=== PATIENT | female | born 1940 | race Caucasian/White ===

== ENCOUNTER 2016-04-18 11:51 | Inpatient (IN) | payer MEDICAID, MEDICARE ==
[2016-04-18 13:14] LABS: PROTHROMBIN TIME 15.2 SEC (11.4-15.4)
[2016-04-18] MEDS ORDERED: LIDOCAINE 1% INJ-PF (10 MG/ML) 30 ML SDV NEB ONE (13:17)
[2016-04-18] MEDS ORDERED: NORMAL SALINE 1000 ML 200 ML IV ONE (13:17)
[2016-04-18] MEDS ORDERED: ACETAMINOPHEN 650 MG SUPP.RECT PR ONE (13:21)
--- NOTE | 2016-04-18 13:25 | ER Document Report ---
ED General <DAKOTAHJOSÉ LUIS RamírezAKASH - Last Filed: 04/18/16 15:57> - General Mode of Arrival: Medic Information source: Emergency Med Personnel TRAVEL OUTSIDE OF THE [place] IN LAST 30 DAYS: No - HPI Patient complains to provider of: bilateral lower extremity edema Onset: This morning Associated symptoms: Other - see above <JULIETA BENZ - Last Filed: 04/23/16 15:52> - General Chief Complaint: Leg Swelling Stated Complaint: SWELLING Notes: 75 year old female with history of dementia, atrial fibrillation, hypertension, pneumonia, and bilateral lower extremity edema and cellulitis presents to the ED via [facility] complaining of increased swelling and drainage to her bilateral lower extremities. Upon examination, patient was continuously coughing and a comprehensive HPI was unobtainable. (JULIETA BENZ) - Related Data Allergies/Adverse Reactions: cefazolin [Cefazolin] Allergy (Intermediate, Verified 04/18/16 16:00) Penicillins Allergy (Intermediate, Verified 04/18/16 16:00) aspirin [Aspirin] Allergy (Unknown, Verified 04/18/16 16:00) ciprofloxacin [From Cipro] Allergy (Unknown, Verified 04/18/16 16:00) codeine [Codeine] Allergy (Unknown, Verified 04/18/16 16:00) furosemide [From Lasix] Allergy (Unknown, Verified 04/18/16 16:00) metoclopramide HCl [From Reglan] Allergy (Unknown, Verified 04/18/16 16:00) prednisone [Prednisone] Allergy (Unknown, Verified 04/18/16 16:00) Sulfa (Sulfonamide Antibiotics) Allergy (Unknown, Verified 04/18/16 16:00) levofloxacin [From Levaquin] Allergy (Verified 04/18/16 16:00) Iodinated Contrast Media - Oral and Adverse Reaction (Severe, Verified 04/18/16 16:00) Home Medications: Current Home Medications Brimonidine Tartrate [Alphagan 0.2% Oph Soln 5 ml] 1 drop OU Q12 04/18/16 [ History] Diphenhydramine HCl [Benadryl Elixir 25 mg/10 ml Ud Cup] 5 ml PO BIDP PRN [History] Docusate Sodium [Colace 100 mg Capsule] 100 mg PO BID 04/18/16 [History] Dorzolamide HCl/Timolol Maleat [Cosopt Eye Drops] 1 drop OU Q12 04/18/16 [ History] Fentanyl [Duragesic 25 Mcg/Hr Transdermal Patch] 1 each TD Q2DAYS 04/18/16 [ History] Hydrocortisone [Hydrocortisone 1% Cream 28.35 Gm] 1 applic TP Q2DAYS 04/18/16 [ History] Hydromorphone HCl [Dilaudid 2 mg Tablet] 8 mg PO Q6HP PRN 04/18/16 [History] Latanoprost [Xalatan 0.005% Oph Soln 2.5 ml] 1 drop OU QHS 04/18/16 [History] Levetiracetam 500 mg PO Q12 04/18/16 [History] Loratadine [Claritin] 10 mg PO DAILY 04/18/16 [History] Metoprolol Succinate [Toprol Xl] 100 mg PO DAILY 04/18/16 [History] Multivitamin [Multivitamins] 1 each PO DAILY 04/18/16 [History] Omeprazole 20 mg PO DAILY 04/18/16 [History] Ondansetron HCl [Zofran 8 mg Tablet] 8 mg PO Q8HP PRN 04/18/16 [History] Paroxetine HCl [Paxil] 10 mg PO DAILY 04/18/16 [History] Past Medical History - General Information source: Emergency Med Personnel, [facility] Records - Social History Smoking Status: Unknown if Ever Smoked Family History: Reviewed & Not Pertinent - Past Medical History Cardiac Medical History: Reports: Hx Atrial Fibrillation, Hx Hypertension Pulmonary Medical History: Reports: Hx Pneumonia Neurological Medical History: Reports: Hx Seizures GI Medical History: Reports: Hx Gastroesophageal Reflux Disease, Hx Hiatal Hernia, Hx Ulcer Musculoskeltal Medical History: Reports Hx Arthritis Skin Medical History: Reports Hx Cellulitis - Chronic, Reports Hx MRSA Psychiatric Medical History: Reports: Hx Anxiety, Hx Dementia, Hx Depression Traumatic Medical History: Reports: Hx Fractures Infectious Medical History: Reports: Hx MRSA Past Surgical History: Reports: Hx Abdominal Surgery - abd hernia repair x1, Hx Appendectomy, Hx Bowel Surgery, Hx Herniorrhaphy, Hx Hysterectomy, Hx Orthopedic Surgery - back, Hx Rectal Surgery - rectal prolapse repair, Hx Tonsillectomy, Hx Urinary Tract Surgery - Immunizations Immunizations up to date: Yes Hx Diphtheria, Pertussis, Tetanus Vaccination: Yes Hx Pneumococcal Vaccination: 08/11/10 <JULIETA BENZ - Last Filed: 04/23/16 15:52> Review of Systems <AKASH CLAIRE - Last Filed: 04/18/16 15:57> - Review of Systems Constitutional: No symptoms reported EENT: No symptoms reported Cardiovascular: No symptoms reported Respiratory: See HPI, Cough - continuous Gastrointestinal: No symptoms reported Genitourinary: No symptoms reported Female Genitourinary: No symptoms reported Musculoskeletal: See HPI, Leg swelling - bilaterally with drainage, Ankle swelling - bilaterally with drainage Skin: No symptoms reported Hematologic/Lymphatic: No symptoms reported Neurological/Psychological: No symptoms reported -: Yes All other systems reviewed and negative <JULIETA BENZ - Last Filed: 04/23/16 15:52> - Review of Systems Notes: A comprehensive ROS was unobtainable secondary to the patient's constant cough. (JULIETA BENZ) Physical Exam <AKASH CLAIRE - Last Filed: 04/18/16 15:57> - General General appearance: Alert - HEENT Head: Normocephalic, Atraumatic Eyes: Normal Extraocular movements intact: Yes Pupils: PERRL - Respiratory Respiratory status: No respiratory distress Breath sounds: Productive cough - Continuous coughing and gagging. Patient is bringing up mucus and foam., Rhonchi - bilaterally. No: Normal - Cardiovascular Rhythm: Regular, Tachycardia Heart sounds: Normal auscultation - Abdominal Inspection: Normal Distension: No distension Tenderness: Nontender - Back Back: Normal - Extremities General upper extremity: Normal inspection, Normal ROM General lower extremity: Edema - Bilateral lower extremities are grossly lymphedematous with erythema and weeping. Bilateral lower extremities do not look a lot different than before., Normal ROM. No: Normal inspection - Neurological Neuro grossly intact: Yes - Unable to determine if patient is at baseline - Psychological Associated symptoms: Normal affect, Normal mood - Skin Skin Temperature: Warm Skin Moisture: Dry Skin Color: Normal Skin irregularity: other - see lower extremity exam above <JULIETA BENZ - Last Filed: 04/23/16 15:52> - Vital signs Vitals: Resp 22 H 04/18/16 12:30 (AKASH CLAIRE) (JULIETA BENZ) Course - Laboratory Result Diagrams: 04/18/16 12:37 04/18/16 12:37 - Diagnostic Test Radiology reviewed: Image reviewed, Reports reviewed - Small right effusion enlarged heart R Tylenol hernia no acute process - EKG Interpretation by Me EKG shows normal: Sinus rhythm, Intervals. abnormal: [place], QRS Complexes - Borderline R-wave progression in anterior leads, ST-T Waves - [place] lateral T abnormalities Rate: Tachycardia - 115 Rhythm: A.Fib [place]/QRS: Left axis deviation When compared to previous EKG there are: No significant change - Consults Dr. Pastrana Time consulted: 14:35 Consulted provider: will see as inpatient <AKASH CLAIRE - Last Filed: 04/18/16 15:57> - Laboratory Result Diagrams: 04/22/16 15:15 04/22/16 15:15 <JULIETA BENZ - Last Filed: 04/23/16 15:52> - Vital Signs Vital signs: Temp Pulse Resp BP Pulse Ox 98.1 F 64 18 141/85 H 91 L 04/23/16 14:47 04/23/16 14:47 04/23/16 14:47 04/23/16 14:47 04/23/16 14:47 (AKASH CLAIRE) (JULIETA BENZ) - Laboratory Laboratory results interpreted by va: 04/18/16 04/18/16 04/18/16 12:37 12:37 12:37 WBC 38.0 H* Hgb 11.7 L RDW 14.9 H Plt Count 661 H Seg Neuts % (Manual) 90 H Band Neutrophils % 1 L Lymphocytes % (Manual) 6 L Monocytes % (Manual) 2 L Metamyelocytes % 1 H Abs Neuts (Manual) 35.0 H VBG pH Sodium 133.0 L Potassium 5.1 H Chloride 96 L Carbon Dioxide 20 L BUN 26 H Glucose 131 H Lactic Acid 3.5 H Alkaline Phosphatase 216 H Albumin 2.8 L Lipase TSH Urine Protein Urine Blood Urine Urobilinogen Ur Leukocyte Esterase 04/18/16 04/18/16 04/18/16 12:37 12:37 12:37 WBC Hgb RDW Plt Count Seg Neuts % (Manual) Band Neutrophils % Lymphocytes % (Manual) Monocytes % (Manual) Metamyelocytes % Abs Neuts (Manual) VBG pH Sodium Potassium Chloride Carbon Dioxide BUN Glucose Lactic Acid Alkaline Phosphatase Albumin Lipase 14.0 L TSH 4.69 H Urine Protein 30 H Urine Blood SMALL H Urine Urobilinogen 2.0 H Ur Leukocyte Esterase MODERATE H 04/18/16 04/18/16 13:40 17:50 WBC Hgb RDW Plt Count Seg Neuts % (Manual) Band Neutrophils % Lymphocytes % (Manual) Monocytes % (Manual) Metamyelocytes % Abs Neuts (Manual) VBG pH 7.25 L Sodium Potassium Chloride Carbon Dioxide BUN Glucose Lactic Acid 3.0 H Alkaline Phosphatase Albumin Lipase TSH Urine Protein Urine Blood Urine Urobilinogen Ur Leukocyte Esterase (AKASH CLAIRE) Discharge - Discharge Admitting Provider: [facility] Unit Admitted: Telemetry <AKASH CLAIRE - Last Filed: 04/18/16 15:57> <JULIETA BENZ - Last Filed: 04/23/16 15:52> - Discharge Clinical Impression: Tachycardia, Lymphedema Cellulitis Qualifiers: Site of cellulitis: unspecified site Qualified Code(s): L03.90 - Cellulitis, unspecified Fever Qualifiers: Fever type: unspecified Qualified Code(s): R50.9 - Fever, unspecified Leukocytosis Qualifiers: Leukocytosis type: unspecified Qualified Code(s): D72.829 - Elevated white blood cell count, unspecified Dementia Qualifiers: Dementia type: unspecified type Dementia behavioral disturbance: without behavioral disturbance Qualified Code(s): F03.90 - Unspecified dementia without behavioral disturbance Urinary tract infection Qualifiers: Urinary tract infection type: acute cystitis Hematuria presence: without hematuria Qualified Code(s): N30.00 - Acute cystitis without hematuria Disposition: ADMITTED INPATIENT Scribe Attestation: 04/18/16 14:34 I personally performed the services described in the documentation, reviewed and edited the documentation which was dictated to the scribe in my presence, and it accurately records my words and actions. (AKASH CLAIRE) Scribe Documentation - Scribe Written by Zhou:: Zhou Chandler, 04/18/2016 1334 acting as scribe for :: [place]otah <JULIETA BENZ - Last Filed: 04/23/16 15:52>
[2016-04-18 13:26] LABS: HEMATOCRIT 36.1 % (36.0-47.0); HEMOGLOBIN 11.7 g/dL (12.0-15.5); MEAN CORPUSCULAR HEMOGLOBIN 28.2 pg (27.0-33.4); MEAN CORPUSCULAR HGB CONC 32.4 g/dL (32.0-36.0); MEAN CORPUSCULAR VOLUME 87 fl (80-97); RED BLOOD COUNT 4.16 10^6/uL (3.72-5.28); RED CELL DISTRIBUTION WIDTH 14.9 % (11.5-14.0)
[2016-04-18 13:36] LABS: ALANINE AMINOTRANSFERASE 27 U/L (9-52); ALBUMIN 2.8 g/dL (3.5-5.0); ALKALINE PHOSPHATASE 216 U/L (38-126); ANION GAP 17 (5-19); ASPARTATE AMINO TRANSFERASE 27 U/L (14-36); BILIRUBIN,TOTAL 0.9 mg/dL (0.2-1.3); BLOOD UREA NITROGEN 26 mg/dL (7-20); CALCIUM 8.8 mg/dL (8.4-10.2); CARBON DIOXIDE 20 mmol/L (22-30); CHLORIDE 96 mmol/L (98-107); CREATININE RESULT 0.76 mg/dL (0.52-1.25); GLUCOSE 131 mg/dL (75-110); POTASSIUM 5.1 mmol/L (3.6-5.0); TOTAL PROTEIN 7.5 g/dL (6.3-8.2)
[2016-04-18 13:44] LABS: AMORPHOUS SEDIMENT,URINE TRACE /HPF; APPEARANCE,URINE CLOUDY; BAND NEUTROPHILS % (MANUAL) 1 % (3-5); BASOPHILS % (MANUAL) 0 % (0-2); BILIRUBIN,URINE NEGATIVE (NEGATIVE); EOSINOPHILS % (MANUAL) 0 % (0-6); GLUCOSE, URINE NEGATIVE (NEGATIVE); KETONES,URINE NEGATIVE (NEGATIVE); LEUKOCYTE ESTERASE,URINE MODERATE (NEGATIVE); LYMPHOCYTES % (MANUAL) 6 % (13-45); NITRITE,URINE NEGATIVE (NEGATIVE); PROTEIN,URINE 30 mg/dL (NEGATIVE); TOTAL CELLS COUNTED 100; URINE SPECIFIC GRAVITY 1.019
[2016-04-18 13:45] LABS: POLYCHROMASIA 1+; TOXIC GRANULATION 1+; TOXIC VACUOLATION PRESENT
[2016-04-18 13:46] LABS: VENOUS BLOOD BASE EXCESS -4.2 mmol/L; VENOUS BLOOD HCO3 23.4 mmol/L (20-32); VENOUS BLOOD PCO2 54.2 mmHg (35-63); VENOUS BLOOD PH 7.25 (7.30-7.42)
[2016-04-18] MEDS ORDERED: TIGECYCLINE 50 MG IV ONE (14:45)
[2016-04-18] MEDS ORDERED: LORAZEPAM INJ 2 MG/1 ML VIAL IV ONE ×2 (14:46→16:53)
[2016-04-18] MEDS ORDERED: NORMAL SALINE IV ONE ×2 (16:00→16:30)
[2016-04-18] MEDS ORDERED: TIGECYCLINE IV ONE ×2 (16:00→16:30)
[2016-04-18] MEDS ORDERED: MORPHINE SULFATE 10 MG/ML INJ IV ONE (16:53)
[2016-04-18] MEDS ORDERED: LORAZEPAM INJ 2 MG/1 ML VIAL ONE (17:34)
--- NOTE | 2016-04-18 18:07 | EKG REPORT ---
SEVERITY:- ABNORMAL ECG - SINUS TACHYCARDIA WITH FREQ PACS. LEFT AXIS DEVIATION = LAFB BORDERLINE R WAVE PROGRESSION, ANTERIOR LEADS NONSPECIFIC T ABNORMALITIES, LATERAL LEADS : Confirmed by: Saleem Mcpherson MD 18-Apr-2016 18:06:44
[2016-04-18] MEDS ORDERED: ONDANSETRON HCL 8 MG TABLET PO PRN (19:12)
[2016-04-18] MEDS ORDERED: DIPHENHYDRAMINE HCL 25 MG/10 ML UDC PO PRN ×2 (19:12→19:43)
[2016-04-18] MEDS ORDERED: BRIMONIDINE TARTRATE 0.2% OPH SOLN 5 ML OU SCH (19:15)
[2016-04-18] MEDS ORDERED: DORZOLAMIDE HCL 2%/TIMOLOL MALEAT 0.5% OPH SOLN 10 ML OU SCH (19:15)
[2016-04-18] MEDS ORDERED: LEVETIRACETAM 500 MG TABLET PO SCH (19:15)
[2016-04-18] MEDS ORDERED: (PENDING PHARMACY ID) (Loratadine [Claritin] 10 MG) PO SCH (19:15)
[2016-04-18] MEDS ORDERED: (PENDING PHARMACY ID) (Paroxetine Hcl [Paxil] 10 MG) PO SCH (19:15)
[2016-04-18] MEDS ORDERED: DOCUSATE SODIUM 100 MG CAPSULE PO SCH (20:00)
[2016-04-18 20:55] LABS: CREATINE KINASE MB 2.29 ng/mL (<4.55); TROPONIN I 0.015 ng/mL
[2016-04-18] MEDS ORDERED: LANSOPRAZOLE 15 MG TAB.RAP.DR PO ONE (21:00)
[2016-04-18] MEDS ORDERED: PAROXETINE HCL 20 MG TABLET PO ONE (21:00)
[2016-04-18] MEDS ORDERED: METOPROLOL SUCCINATE 50 MG TAB.SR.24H PO ONE (21:00)
[2016-04-18] MEDS ORDERED: MULTIVITAMIN TABLET PO ONE (21:00)
[2016-04-18 23:49] LABS: THYROID STIMULATING HORMONE 4.69 uIU/mL (0.47-4.68)
[2016-04-18] MEDS: AZTREONAM 1 GM in DEXTROSE 5%-WATER 50 ML IV SCH (23:57)
[2016-04-19] MEDS: HEPARIN SOD (PORCINE) 5,000 UNIT/ML 1 ML SYRINGE SUBCUT SCH ×4 (00:15→22:11)
[2016-04-19] MEDS: BRIMONIDINE TARTRATE 0.2% OPH SOLN 5 ML OU SCH ×3 (00:18→22:10)
[2016-04-19] MEDS: DORZOLAMIDE HCL 2%/TIMOLOL MALEAT 0.5% OPH SOLN 10 ML OU SCH ×3 (00:19→22:10)
[2016-04-19] MEDS: DOCUSATE SODIUM 100 MG CAPSULE PO SCH ×3 (00:19→22:11)
[2016-04-19] MEDS: LEVETIRACETAM 500 MG TABLET PO SCH ×3 (00:20→22:11)
[2016-04-19] MEDS: LATANOPROST 0.005% OPH SOLN 2.5 ML OU SCH ×2 (00:24→22:10)
[2016-04-19] MEDS: FENTANYL 25 MCG/HR PATCH.TD72 TD SCH (02:13)
[2016-04-19] MEDS: HYDROCORTISONE 1% CREAM 28.35 GM TP SCH (02:13)
[2016-04-19] MEDS: LINEZOLID 300 ML IV SCH ×2 (02:14→11:51)
[2016-04-19 02:29] LABS: CREATINE KINASE MB 2.43 ng/mL (<4.55)
[2016-04-19 02:33] LABS: TROPONIN I < 0.012 ng/mL
[2016-04-19] MEDS: NORMAL SALINE 1000 ML 1,000 ML IV PRN ×2 (02:46→17:32)
[2016-04-19] MEDS: HYDROMORPHONE HCL 2 MG TABLET PO PRN (03:00)
[2016-04-19] MEDS ORDERED: INFLUENZA ADLT QUAD (36MOS+) 2016-17 VAC 0.5 ML SYR IM PRN (03:44)
[2016-04-19] MEDS: AZTREONAM 1 GM in DEXTROSE 5%-WATER 50 ML IV SCH ×3 (06:19→22:09)
[2016-04-19 08:43] LABS: HEMATOCRIT 29.2 % (36.0-47.0); MEAN CORPUSCULAR HEMOGLOBIN 27.7 pg (27.0-33.4); MEAN CORPUSCULAR HGB CONC 32.1 g/dL (32.0-36.0); MEAN CORPUSCULAR VOLUME 86 fl (80-97); RED BLOOD COUNT 3.38 10^6/uL (3.72-5.28); RED CELL DISTRIBUTION WIDTH 14.8 % (11.5-14.0); WHITE BLOOD COUNT 26.5 10^3/uL (4.0-10.5)
[2016-04-19 08:44] LABS: HEMOGLOBIN 9.4 g/dL (12.0-15.5)
[2016-04-19 08:52] LABS: ALANINE AMINOTRANSFERASE 24 U/L (9-52); ALBUMIN 2.1 g/dL (3.5-5.0); ALKALINE PHOSPHATASE 146 U/L (38-126); ANION GAP 10 (5-19); ASPARTATE AMINO TRANSFERASE 19 U/L (14-36); BILIRUBIN,TOTAL 0.5 mg/dL (0.2-1.3); BLOOD UREA NITROGEN 23 mg/dL (7-20); CALCIUM 8.1 mg/dL (8.4-10.2); CARBON DIOXIDE 21 mmol/L (22-30); CHLORIDE 105 mmol/L (98-107); CREATININE RESULT 0.62 mg/dL (0.52-1.25); GLUCOSE 116 mg/dL (75-110); TOTAL PROTEIN 5.4 g/dL (6.3-8.2)
[2016-04-19 08:56] LABS: BAND NEUTROPHILS % (MANUAL) 2 % (3-5); BASOPHILS % (MANUAL) 0 % (0-2); EOSINOPHILS % (MANUAL) 0 % (0-6); LYMPHOCYTES % (MANUAL) 2 % (13-45); TOTAL CELLS COUNTED 100
[2016-04-19 08:57] LABS: ANISOCYTOSIS SLIGHT; TOXIC GRANULATION 2+
[2016-04-19 09:02] LABS: CREATINE KINASE MB 3.88 ng/mL (<4.55)
[2016-04-19 09:09] LABS: POTASSIUM 4.1 mmol/L (3.6-5.0); TROPONIN I < 0.012 ng/mL
[2016-04-19] MEDS: PAROXETINE HCL 20 MG TABLET PO SCH (09:19)
[2016-04-19] MEDS: MULTIVITAMIN TABLET PO SCH (09:20)
[2016-04-19] MEDS: METOPROLOL SUCCINATE 50 MG TAB.SR.24H PO SCH (09:20)
[2016-04-19] MEDS: LORATADINE 10 MG TABLET PO SCH (09:21)
[2016-04-19] MEDS: LANSOPRAZOLE 15 MG TAB.RAP.DR PO SCH (09:21)
[2016-04-19] MEDS ORDERED: TIGECYCLINE IV SCH (10:00)
[2016-04-19] MEDS ORDERED: NORMAL SALINE IV SCH (10:00)
[2016-04-19 13:47] LABS: PATH REVIEW PATHOLOGIST REVIEWED
--- NOTE | 2016-04-19 18:42 | PDOC H&P ---
History of Present Illness Admission Date/PCP: 04/18/16 19:08 PRAKASH RANKIN History of Present Illness: THAO TARIQ is a 75 year old female with multiple medical problems including chronic lymphedema, chronic debilitation, she is a resident of the snf at [facility]. She was transferred from the snf to the emergency room because of sepsis. Patient was obtunded,History taking was impossible, she was seen and evaluated in emergency room, she was found to have severe leukocytosis, the WBC count was 38,000 with a left shift, the temperature was 102, there are many potential sources of the sepsis including infected lymphedema, UTI, pneumonia. The chest x-ray did not suggest pneumonia, the encephalopathy is most likely from the sepsis. She presented in a similar fashion in 12/10/2015 when she presented with severe sepsis at the time she had pneumonia. CT chest that was done then showed moderate large right pleural effusion.. She has a long list of drug allergy including allergy to penicillin, ciprofloxacin, vancomycin etc. Past Medical History Cardiac Medical History: Reports: Atrial Fibrillation, Hypertension, Other Pulmonary Medical History: Reports: Pneumonia Neurological Medical History: Reports: Seizures GI Medical History: Reports: Gastroesophageal Reflux Disease, Hiatal Hernia Musculoskeltal Medical History: Reports: Arthritis Psychiatric Medical History: Reports: Dementia, Depression Hematology: Reports: Anemia Infectious Medical History: Reports: Methicillin-Resistant Staph Aureus Past Surgical History Past Surgical History: Reports: Appendectomy, Herniorrhaphy, Hysterectomy, Orthopedic Surgery - back, Tonsillectomy Social History Information Source: Outside Facility Records Lives with: Long-Term Smoking Status: Former Smoker Frequency of Alcohol Use: None Hx Recreational Drug Use: No Drugs: None Hx Prescription Drug Abuse: No - Advance Directive Resuscitation Status: Do Not Resuscitate Family History Family History: Reviewed & Not Pertinent Parental Family History Reviewed: Yes Children Family History Reviewed: Yes Sibling(s) Family History Reviewed.: Yes Medication/Allergy Home Medications: Brimonidine Tartrate [Alphagan 0.2% Oph Soln 5 ml] 1 drop OU Q12 04/18/16 Diphenhydramine HCl [Benadryl Elixir 25 mg/10 ml Ud Cup] 5 ml PO BIDP PRN Docusate Sodium [Colace 100 mg Capsule] 100 mg PO BID 04/18/16 Dorzolamide HCl/Timolol Maleat [Cosopt Eye Drops] 1 drop OU Q12 04/18/16 Fentanyl [Duragesic 25 Mcg/Hr Transdermal Patch] 1 each TD Q2DAYS 04/18/16 Hydrocortisone [Hydrocortisone 1% Cream 28.35 Gm] 1 applic TP Q2DAYS 04/18/16 Hydromorphone HCl [Dilaudid 2 mg Tablet] 8 mg PO Q6HP PRN 04/18/16 Latanoprost [Xalatan 0.005% Oph Soln 2.5 ml] 1 drop OU QHS 04/18/16 Levetiracetam 500 mg PO Q12 04/18/16 Loratadine [Claritin] 10 mg PO DAILY 04/18/16 Metoprolol Succinate [Toprol Xl] 100 mg PO DAILY 04/18/16 Multivitamin [Multivitamins] 1 each PO DAILY 04/18/16 Omeprazole 20 mg PO DAILY 04/18/16 Ondansetron HCl [Zofran 8 mg Tablet] 8 mg PO Q8HP PRN 04/18/16 Paroxetine HCl [Paxil] 10 mg PO DAILY 04/18/16 Allergies/Adverse Reactions: cefazolin [Cefazolin] Allergy (Intermediate, Verified 04/18/16 16:00) Penicillins Allergy (Intermediate, Verified 04/18/16 16:00) aspirin [Aspirin] Allergy (Unknown, Verified 04/18/16 16:00) ciprofloxacin [From Cipro] Allergy (Unknown, Verified 04/18/16 16:00) codeine [Codeine] Allergy (Unknown, Verified 04/18/16 16:00) furosemide [From Lasix] Allergy (Unknown, Verified 04/18/16 16:00) metoclopramide HCl [From Reglan] Allergy (Unknown, Verified 04/18/16 16:00) prednisone [Prednisone] Allergy (Unknown, Verified 04/18/16 16:00) Sulfa (Sulfonamide Antibiotics) Allergy (Unknown, Verified 04/18/16 16:00) levofloxacin [From Levaquin] Allergy (Verified 04/18/16 16:00) Iodinated Contrast Media - Oral and Adverse Reaction (Severe, Verified 04/18/16 16:00) Review of Systems ROS unobtainable: Due to mental status Physical Exam Vital Signs: Temp Pulse Resp BP Pulse Ox 97.4 F 122 H 18 113/84 86 L 04/19/16 17:00 04/19/16 17:00 04/19/16 17:00 04/19/16 17:00 04/19/16 17:00 Intake & Output 04/18/16 04/19/16 04/20/16 06:59 06:59 06:59 Intake Total 400 1133 Balance 400 1133 Weight 65.7 kg General appearance: PRESENT: other - Obtunded Head exam: PRESENT: normocephalic Eye exam: PRESENT: PERRLA Respiratory exam: PRESENT: other - On auscultation of the chest there is equal air entry on both lung chappell Cardiovascular exam: PRESENT: +S1, +S2 Vascular exam: PRESENT: other - There is lymphedema with superimposed erythema and extreme scaliness of the lower extremities bilaterally Extremities exam: PRESENT: pedal edema Neurological exam: PRESENT: other - Patient is obtunded with contracted extremities, upper extremities, the lower extremities is lymphedematous Skin exam: PRESENT: erythema Results Laboratory Results: 04/19/16 08:07 04/19/16 08:07 04/19/16 04/19/16 08:07 08:07 WBC 26.5 H RBC 3.38 L Hgb 9.4 L D Hct 29.2 L MCV 86 MCH 27.7 MCHC 32.1 RDW 14.8 H Plt Count 442 Seg Neutrophils % Not Reportable Lymphocytes % Not Reportable Monocytes % Not Reportable Eosinophils % Not Reportable Basophils % Not Reportable Absolute Neutrophils Not Reportable Absolute Lymphocytes Not Reportable Absolute Monocytes Not Reportable Absolute Eosinophils Not Reportable Absolute Basophils Not Reportable Sodium 136.0 L Potassium 4.1 D Chloride 105 Carbon Dioxide 21 L Anion Gap 10 BUN 23 H Creatinine 0.62 Est GFR ( Amer) > 60 Est GFR (Non-Af Amer) > 60 Glucose 116 H Calcium 8.1 L Total Bilirubin 0.5 AST 19 ALT 24 Alkaline Phosphatase 146 H Total Protein 5.4 L Albumin 2.1 L 04/18/16 04/18/16 04/19/16 19:55 19:55 01:54 Creatine Kinase 76 CK-MB (CK-2) 2.29 2.43 Troponin I 0.015 < 0.012 04/19/16 04/19/16 04/19/16 08:07 08:07 08:07 Creatine Kinase Cancelled 201 H CK-MB (CK-2) 3.88 Troponin I < 0.012 Impressions: Chest X-Ray 04/18/16 00:00 IMPRESSION: 1. CARDIAC ENLARGEMENT WITH MILD ATELECTASIS AND SMALL RIGHT PLEURAL EFFUSION. 2. LARGE HIATAL HERNIA. Assessment & Plan - Diagnosis (1) Sepsis Qualifiers: Sepsis type: sepsis due to unspecified organism Qualified Code(s): A41.9 - Sepsis, unspecified organism Is this a current diagnosis for this admission?: YesPlan: She met sepsis criteria including severe confusion, severe leukocytosis, lactic acidosis, the sepsis is likely due to UTI, cellulitis of lymphedema, she will empirically be treated with aztreonam, Zyvox and tigecycline. This will cover all potential organisms including MRSA, gram-negative organisms (2) Urinary tract infection Qualifiers: Urinary tract infection type: acute cystitis Hematuria presence: without hematuria Qualified Code(s): N30.00 - Acute cystitis without hematuria Is this a current diagnosis for this admission?: Yes (3) Cellulitis Qualifiers: Site of cellulitis: unspecified site Qualified Code(s): L03.90 - Cellulitis, unspecified Is this a current diagnosis for this admission?: Yes
--- NOTE | 2016-04-19 19:45 | PDOC PROGRESS REPORT ---
Subjective Progress Note for:: 04/19/16 Subjective:: Patient was seen by the bedside, she was admitted yesterday because of severe sepsis, she is obtunded but responsive, although confused Physical Exam Vital Signs: Temp Pulse Resp BP Pulse Ox 97.4 F 122 H 18 113/84 86 L 04/19/16 17:00 04/19/16 17:00 04/19/16 17:00 04/19/16 17:00 04/19/16 17:00 Intake & Output 04/18/16 04/19/16 04/20/16 06:59 06:59 06:59 Intake Total 400 1133 Balance 400 1133 Weight 65.7 kg General appearance: PRESENT: no acute distress Eye exam: PRESENT: PERRLA Respiratory exam: PRESENT: clear to auscultation anant Cardiovascular exam: PRESENT: +S1, +S2 GI/Abdominal exam: PRESENT: soft Neurological exam: PRESENT: alert Results Laboratory Results: 04/19/16 08:07 04/19/16 08:07 04/19/16 04/19/16 08:07 08:07 WBC 26.5 H RBC 3.38 L Hgb 9.4 L D Hct 29.2 L MCV 86 MCH 27.7 MCHC 32.1 RDW 14.8 H Plt Count 442 Seg Neutrophils % Not Reportable Lymphocytes % Not Reportable Monocytes % Not Reportable Eosinophils % Not Reportable Basophils % Not Reportable Absolute Neutrophils Not Reportable Absolute Lymphocytes Not Reportable Absolute Monocytes Not Reportable Absolute Eosinophils Not Reportable Absolute Basophils Not Reportable Sodium 136.0 L Potassium 4.1 D Chloride 105 Carbon Dioxide 21 L Anion Gap 10 BUN 23 H Creatinine 0.62 Est GFR ( Amer) > 60 Est GFR (Non-Af Amer) > 60 Glucose 116 H Calcium 8.1 L Total Bilirubin 0.5 AST 19 ALT 24 Alkaline Phosphatase 146 H Total Protein 5.4 L Albumin 2.1 L 04/18/16 04/18/16 04/19/16 19:55 19:55 01:54 Creatine Kinase 76 CK-MB (CK-2) 2.29 2.43 Troponin I 0.015 < 0.012 04/19/16 04/19/16 04/19/16 08:07 08:07 08:07 Creatine Kinase Cancelled 201 H CK-MB (CK-2) 3.88 Troponin I < 0.012 Impressions: Chest X-Ray 04/18/16 00:00 IMPRESSION: 1. CARDIAC ENLARGEMENT WITH MILD ATELECTASIS AND SMALL RIGHT PLEURAL EFFUSION. 2. LARGE HIATAL HERNIA. Assessment & Plan - Diagnosis (1) Sepsis Qualifiers: Sepsis type: sepsis due to unspecified organism Qualified Code(s): A41.9 - Sepsis, unspecified organism Is this a current diagnosis for this admission?: Yes (2) Urinary tract infection Qualifiers: Urinary tract infection type: acute cystitis Hematuria presence: without hematuria Qualified Code(s): N30.00 - Acute cystitis without hematuria Is this a current diagnosis for this admission?: Yes (3) Cellulitis Qualifiers: Site of cellulitis: unspecified site Qualified Code(s): L03.90 - Cellulitis, unspecified Is this a current diagnosis for this admission?: Yes
[2016-04-20] MEDS: LINEZOLID 300 ML IV SCH ×3 (00:59→23:35)
[2016-04-20 04:54] LABS: ABSOLUTE EOSINOPHILS # (AUTO) 0.1 10^3/uL (0.0-0.6); ABSOLUTE LYMPHOCYTES (AUTO) 1.6 10^3/uL (0.5-4.7); ABSOLUTE MONOCYTES (AUTO) 0.6 10^3/uL (0.1-1.4); ABSOLUTE NEUT (AUTO) 15.9 10^3/uL (1.7-8.2); BASOPHILS % (AUTO) 0.2 % (0-2); EOSINOPHILS % (AUTO) 0.7 % (0-6); HEMATOCRIT 28.6 % (36.0-47.0); HEMOGLOBIN 9.3 g/dL (12.0-15.5); HGB HCT DIFFERENCE -0.7; LYMPHOCYTES % (AUTO) 8.7 % (13-45); MEAN CORPUSCULAR HEMOGLOBIN 27.9 pg (27.0-33.4); MEAN CORPUSCULAR HGB CONC 32.5 g/dL (32.0-36.0); MEAN CORPUSCULAR VOLUME 86 fl (80-97); MONOCYTES % (AUTO) 3.4 % (3-13); RED BLOOD COUNT 3.33 10^6/uL (3.72-5.28); RED CELL DISTRIBUTION WIDTH 15.2 % (11.5-14.0); WHITE BLOOD COUNT 18.3 10^3/uL (4.0-10.5)
[2016-04-20 05:06] LABS: ALANINE AMINOTRANSFERASE 19 U/L (9-52); ALKALINE PHOSPHATASE 117 U/L (38-126); ANION GAP 8 (5-19); ASPARTATE AMINO TRANSFERASE 16 U/L (14-36); BILIRUBIN,TOTAL 0.3 mg/dL (0.2-1.3); BLOOD UREA NITROGEN 23 mg/dL (7-20); CALCIUM 7.8 mg/dL (8.4-10.2); CARBON DIOXIDE 19 mmol/L (22-30); CHLORIDE 108 mmol/L (98-107); CREATININE RESULT 0.51 mg/dL (0.52-1.25); GLUCOSE 86 mg/dL (75-110); POTASSIUM 3.6 mmol/L (3.6-5.0); TOTAL PROTEIN 4.9 g/dL (6.3-8.2)
[2016-04-20] MEDS: HEPARIN SOD (PORCINE) 5,000 UNIT/ML 1 ML SYRINGE SUBCUT SCH ×3 (05:41→21:35)
[2016-04-20] MEDS: AZTREONAM 1 GM in DEXTROSE 5%-WATER 50 ML IV SCH ×3 (06:24→22:07)
[2016-04-20] MEDS: NORMAL SALINE 1000 ML 1,000 ML IV PRN (08:42)
[2016-04-20] MEDS: BRIMONIDINE TARTRATE 0.2% OPH SOLN 5 ML OU SCH ×2 (09:24→21:36)
[2016-04-20] MEDS: DORZOLAMIDE HCL 2%/TIMOLOL MALEAT 0.5% OPH SOLN 10 ML OU SCH ×2 (09:24→21:36)
[2016-04-20] MEDS: PAROXETINE HCL 20 MG TABLET PO SCH (09:26)
[2016-04-20] MEDS: LEVETIRACETAM 500 MG TABLET PO SCH ×2 (09:26→21:35)
[2016-04-20] MEDS: DOCUSATE SODIUM 100 MG CAPSULE PO SCH ×2 (09:26→21:35)
[2016-04-20] MEDS: MULTIVITAMIN TABLET PO SCH (09:26)
[2016-04-20] MEDS: LORATADINE 10 MG TABLET PO SCH (09:26)
[2016-04-20] MEDS: LANSOPRAZOLE 15 MG TAB.RAP.DR PO SCH (09:26)
[2016-04-20] MEDS: METOPROLOL SUCCINATE 50 MG TAB.SR.24H PO SCH (09:28)
--- NOTE | 2016-04-20 16:52 | PDOC PROGRESS REPORT ---
Subjective Progress Note for:: 04/20/16 Subjective:: Patient is more responsive today compared to when she was admitted, the urine culture grew Klebsiella, the wound culture is polymicrobial with strength, staph and gram-negative rods. She is presently on intravenous aztreonam and Zyvox. She has a long history of allergy to antibiotic included penicillin, Cipro, etc. It is reasonable at this point to discontinue aztreonam and start on meropenem because the MILLER for meropenem for the Klebsiella in the urine is less than 1. Meropenem is nonformulary in this hospital Physical Exam Vital Signs: Temp Pulse Resp BP Pulse Ox 97.5 F 71 19 111/51 L 93 04/20/16 16:00 04/20/16 16:00 04/20/16 16:00 04/20/16 16:00 04/20/16 16:00 Intake & Output 04/19/16 04/20/16 04/21/16 06:59 06:59 06:59 Intake Total 400 2733 25 Balance 400 2733 25 Weight 65.7 kg 74.3 kg General appearance: PRESENT: no acute distress Eye exam: PRESENT: PERRLA Respiratory exam: PRESENT: clear to auscultation anant Cardiovascular exam: PRESENT: +S1, +S2 GI/Abdominal exam: PRESENT: soft Extremities exam: PRESENT: other - Lymphedema with superimposed cellulitis Neurological exam: PRESENT: alert Results Laboratory Results: 04/20/16 04:38 04/20/16 04:38 04/20/16 04/20/16 04:38 04:38 WBC 18.3 H RBC 3.33 L Hgb 9.3 L Hct 28.6 L MCV 86 MCH 27.9 MCHC 32.5 RDW 15.2 H Plt Count 421 Seg Neutrophils % 87.0 H Lymphocytes % 8.7 L Monocytes % 3.4 Eosinophils % 0.7 Basophils % 0.2 Absolute Neutrophils 15.9 H Absolute Lymphocytes 1.6 Absolute Monocytes 0.6 Absolute Eosinophils 0.1 Absolute Basophils 0.0 Sodium 135.0 L Potassium 3.6 Chloride 108 H Carbon Dioxide 19 L Anion Gap 8 BUN 23 H Creatinine 0.51 L Est GFR ( Amer) > 60 Est GFR (Non-Af Amer) > 60 Glucose 86 Calcium 7.8 L Total Bilirubin 0.3 AST 16 ALT 19 Alkaline Phosphatase 117 Total Protein 4.9 L Albumin 2.0 L 04/19/16 06:30 Leg - Cellulitis Gram Stain - Final 04/19/16 06:30 Nasophary (Mrsa Only) MRSA Surveillance Culture - Final NO MRSA RECOVERED 04/18/16 04/18/16 04/19/16 19:55 19:55 01:54 Creatine Kinase 76 CK-MB (CK-2) 2.29 2.43 Troponin I 0.015 < 0.012 04/19/16 04/19/16 04/19/16 08:07 08:07 08:07 Creatine Kinase Cancelled 201 H CK-MB (CK-2) 3.88 Troponin I < 0.012 Impressions: Chest X-Ray 04/18/16 00:00 IMPRESSION: 1. CARDIAC ENLARGEMENT WITH MILD ATELECTASIS AND SMALL RIGHT PLEURAL EFFUSION. 2. LARGE HIATAL HERNIA. Assessment & Plan - Diagnosis (1) Sepsis Qualifiers: Sepsis type: sepsis due to unspecified organism Qualified Code(s): A41.9 - Sepsis, unspecified organism Is this a current diagnosis for this admission?: Yes (2) Urinary tract infection Qualifiers: Urinary tract infection type: acute cystitis Hematuria presence: without hematuria Qualified Code(s): N30.00 - Acute cystitis without hematuria Is this a current diagnosis for this admission?: Yes (3) Cellulitis Qualifiers: Site of cellulitis: unspecified site Qualified Code(s): L03.90 - Cellulitis, unspecified Is this a current diagnosis for this admission?: Yes (4) UTI due to Klebsiella species Is this a current diagnosis for this admission?: YesPlan: She will continue present IV antibiotic including aztreonam
[2016-04-20] MEDS: FENTANYL 25 MCG/HR PATCH.TD72 TD SCH (21:36)
[2016-04-20] MEDS: HYDROCORTISONE 1% CREAM 28.35 GM TP SCH (21:36)
[2016-04-20] MEDS: LATANOPROST 0.005% OPH SOLN 2.5 ML OU SCH (21:50)
[2016-04-21] MEDS: HYDROMORPHONE HCL 2 MG TABLET PO PRN ×2 (03:33→13:33)
[2016-04-21 04:57] LABS: ABSOLUTE EOSINOPHILS # (AUTO) 0.1 10^3/uL (0.0-0.6); ABSOLUTE LYMPHOCYTES (AUTO) 1.8 10^3/uL (0.5-4.7); ABSOLUTE MONOCYTES (AUTO) 0.5 10^3/uL (0.1-1.4); ABSOLUTE NEUT (AUTO) 8.9 10^3/uL (1.7-8.2); BASOPHILS % (AUTO) 0.2 % (0-2); EOSINOPHILS % (AUTO) 0.9 % (0-6); HEMATOCRIT 32.3 % (36.0-47.0); HEMOGLOBIN 10.4 g/dL (12.0-15.5); HGB HCT DIFFERENCE -1.1; LYMPHOCYTES % (AUTO) 15.7 % (13-45); MEAN CORPUSCULAR HEMOGLOBIN 28.2 pg (27.0-33.4); MEAN CORPUSCULAR HGB CONC 32.1 g/dL (32.0-36.0); MEAN CORPUSCULAR VOLUME 88 fl (80-97); MONOCYTES % (AUTO) 4.4 % (3-13); RED BLOOD COUNT 3.68 10^6/uL (3.72-5.28); RED CELL DISTRIBUTION WIDTH 15.2 % (11.5-14.0); SEGMENTED NEUTROPHILS % (AUTO) 78.8 % (42-78); WHITE BLOOD COUNT 11.3 10^3/uL (4.0-10.5)
[2016-04-21] MEDS: HEPARIN SOD (PORCINE) 5,000 UNIT/ML 1 ML SYRINGE SUBCUT SCH ×3 (05:13→22:21)
[2016-04-21 05:29] LABS: ALANINE AMINOTRANSFERASE 25 U/L (9-52); ALBUMIN 2.3 g/dL (3.5-5.0); ALKALINE PHOSPHATASE 121 U/L (38-126); ANION GAP 10 (5-19); ASPARTATE AMINO TRANSFERASE 20 U/L (14-36); BILIRUBIN,TOTAL 0.4 mg/dL (0.2-1.3); BLOOD UREA NITROGEN 17 mg/dL (7-20); CALCIUM 8.1 mg/dL (8.4-10.2); CARBON DIOXIDE 19 mmol/L (22-30); CHLORIDE 108 mmol/L (98-107); GLUCOSE 75 mg/dL (75-110); SODIUM 137.3 mmol/L (137-145); TOTAL PROTEIN 5.9 g/dL (6.3-8.2)
[2016-04-21] MEDS: AZTREONAM 1 GM in DEXTROSE 5%-WATER 50 ML IV SCH ×3 (06:12→22:25)
[2016-04-21] MEDS: LORATADINE 10 MG TABLET PO SCH (09:52)
[2016-04-21] MEDS: DOCUSATE SODIUM 100 MG CAPSULE PO SCH ×2 (09:52→22:21)
[2016-04-21] MEDS: LEVETIRACETAM 500 MG TABLET PO SCH ×2 (09:53→22:21)
[2016-04-21] MEDS: LANSOPRAZOLE 15 MG TAB.RAP.DR PO SCH (09:54)
[2016-04-21] MEDS: MULTIVITAMIN TABLET PO SCH (09:54)
[2016-04-21] MEDS: PAROXETINE HCL 20 MG TABLET PO SCH (09:54)
[2016-04-21] MEDS: BRIMONIDINE TARTRATE 0.2% OPH SOLN 5 ML OU SCH ×2 (09:55→22:20)
[2016-04-21] MEDS: DORZOLAMIDE HCL 2%/TIMOLOL MALEAT 0.5% OPH SOLN 10 ML OU SCH ×2 (09:55→22:20)
[2016-04-21] MEDS: LINEZOLID 300 ML IV SCH (13:32)
[2016-04-21] MEDS: NORMAL SALINE 1000 ML 1,000 ML IV PRN (13:32)
[2016-04-21] MEDS: METOPROLOL SUCCINATE 50 MG TAB.SR.24H PO SCH (13:34)
--- NOTE | 2016-04-21 20:32 | PDOC PROGRESS REPORT ---
Subjective Progress Note for:: 04/21/16 Subjective:: Patient is responding quite well to IV antibiotic, she is more coherent, part of the leg culture grew MRSA, pseudomonas, she is already on Zyvox Physical Exam Vital Signs: Temp Pulse Resp BP Pulse Ox 97.7 F 53 L 16 101/65 99 04/21/16 20:00 04/21/16 20:00 04/21/16 20:00 04/21/16 20:00 04/21/16 20:00 Intake & Output 04/20/16 04/21/16 04/22/16 06:59 06:59 06:59 Intake Total 2733 2488 1300 Output Total 0 Balance 2733 2488 1300 Weight 74.3 kg 74.6 kg General appearance: PRESENT: no acute distress Respiratory exam: PRESENT: clear to auscultation anant Cardiovascular exam: PRESENT: +S1, +S2 GI/Abdominal exam: PRESENT: soft Neurological exam: PRESENT: alert, CN II-XII grossly intact Results Laboratory Results: 04/21/16 04:16 04/21/16 04:16 04/21/16 04/21/16 04:16 04:16 WBC 11.3 H RBC 3.68 L Hgb 10.4 L Hct 32.3 L MCV 88 MCH 28.2 MCHC 32.1 RDW 15.2 H Plt Count 435 Seg Neutrophils % 78.8 H Lymphocytes % 15.7 Monocytes % 4.4 Eosinophils % 0.9 Basophils % 0.2 Absolute Neutrophils 8.9 H Absolute Lymphocytes 1.8 Absolute Monocytes 0.5 Absolute Eosinophils 0.1 Absolute Basophils 0.0 Sodium 137.3 Potassium 4.0 Chloride 108 H Carbon Dioxide 19 L Anion Gap 10 BUN 17 Creatinine 0.50 L Est GFR ( Amer) > 60 Est GFR (Non-Af Amer) > 60 Glucose 75 Calcium 8.1 L Total Bilirubin 0.4 AST 20 ALT 25 Alkaline Phosphatase 121 Total Protein 5.9 L Albumin 2.3 L 04/19/16 06:30 Leg - Cellulitis Gram Stain - Final 04/19/16 06:30 Leg - Cellulitis Wound Culture - Final Pseudomonas Aeruginosa Mrsa (Meth Resis Staph Aureus) Group C Beta Streptococcus 04/18/16 04/18/16 04/19/16 19:55 19:55 01:54 Creatine Kinase 76 CK-MB (CK-2) 2.29 2.43 Troponin I 0.015 < 0.012 04/19/16 04/19/16 04/19/16 08:07 08:07 08:07 Creatine Kinase Cancelled 201 H CK-MB (CK-2) 3.88 Troponin I < 0.012 Impressions: Chest X-Ray 04/18/16 00:00 IMPRESSION: 1. CARDIAC ENLARGEMENT WITH MILD ATELECTASIS AND SMALL RIGHT PLEURAL EFFUSION. 2. LARGE HIATAL HERNIA. Assessment & Plan - Diagnosis (1) Sepsis Qualifiers: Sepsis type: sepsis due to unspecified organism Qualified Code(s): A41.9 - Sepsis, unspecified organism Is this a current diagnosis for this admission?: Yes (2) Urinary tract infection Qualifiers: Urinary tract infection type: acute cystitis Hematuria presence: without hematuria Qualified Code(s): N30.00 - Acute cystitis without hematuria Is this a current diagnosis for this admission?: Yes (3) Cellulitis Qualifiers: Site of cellulitis: unspecified site Qualified Code(s): L03.90 - Cellulitis, unspecified Is this a current diagnosis for this admission?: Yes (4) UTI due to Klebsiella species Is this a current diagnosis for this admission?: YesPlan: Continue IV aztreonam (5) Methicillin resistant Staph aureus culture positive Is this a current diagnosis for this admission?: YesPlan: Continue IV Zyvox
[2016-04-21] MEDS: LATANOPROST 0.005% OPH SOLN 2.5 ML OU SCH (22:21)
[2016-04-22] MEDS: LINEZOLID 300 ML IV SCH (00:21)
[2016-04-22] MEDS: HYDROMORPHONE HCL 2 MG TABLET PO PRN ×3 (00:30→18:29)
[2016-04-22] MEDS: AZTREONAM 1 GM in DEXTROSE 5%-WATER 50 ML IV SCH ×3 (06:55→22:13)
[2016-04-22] MEDS: HEPARIN SOD (PORCINE) 5,000 UNIT/ML 1 ML SYRINGE SUBCUT SCH ×3 (06:55→21:48)
[2016-04-22] MEDS: NORMAL SALINE 1000 ML 1,000 ML IV PRN ×3 (06:55→23:59)
[2016-04-22] MEDS: LANSOPRAZOLE 15 MG TAB.RAP.DR PO SCH (09:18)
[2016-04-22] MEDS: METOPROLOL SUCCINATE 50 MG TAB.SR.24H PO SCH (09:18)
[2016-04-22] MEDS: LORATADINE 10 MG TABLET PO SCH (09:18)
[2016-04-22] MEDS: BRIMONIDINE TARTRATE 0.2% OPH SOLN 5 ML OU SCH ×2 (09:18→21:46)
[2016-04-22] MEDS: LEVETIRACETAM 500 MG TABLET PO SCH ×2 (09:18→21:44)
[2016-04-22] MEDS: DORZOLAMIDE HCL 2%/TIMOLOL MALEAT 0.5% OPH SOLN 10 ML OU SCH ×2 (09:18→21:46)
[2016-04-22] MEDS: PAROXETINE HCL 20 MG TABLET PO SCH (09:18)
[2016-04-22] MEDS: DOCUSATE SODIUM 100 MG CAPSULE PO SCH ×2 (09:18→21:44)
[2016-04-22] MEDS: MULTIVITAMIN TABLET PO SCH (09:18)
[2016-04-22] MEDS: LINEZOLID 600 MG TABLET PO SCH ×2 (12:37→21:44)
[2016-04-22 15:25] LABS: HEMATOCRIT 32.8 % (36.0-47.0); HEMOGLOBIN 10.4 g/dL (12.0-15.5); HGB HCT DIFFERENCE -1.6; MEAN CORPUSCULAR HGB CONC 31.7 g/dL (32.0-36.0); MEAN CORPUSCULAR VOLUME 88 fl (80-97); RED BLOOD COUNT 3.71 10^6/uL (3.72-5.28); RED CELL DISTRIBUTION WIDTH 15.4 % (11.5-14.0); WHITE BLOOD COUNT 6.7 10^3/uL (4.0-10.5)
[2016-04-22 15:36] LABS: ANION GAP 8 (5-19); BLOOD UREA NITROGEN 12 mg/dL (7-20); CALCIUM 7.5 mg/dL (8.4-10.2); CARBON DIOXIDE 21 mmol/L (22-30); CHLORIDE 111 mmol/L (98-107); CREATININE RESULT 0.53 mg/dL (0.52-1.25); GLUCOSE 118 mg/dL (75-110); POTASSIUM 3.9 mmol/L (3.6-5.0); SODIUM 139.9 mmol/L (137-145)
--- NOTE | 2016-04-22 15:40 | PDOC PROGRESS REPORT ---
Subjective Progress Note for:: 04/22/16 Subjective:: Patient was seen by the bedside with her she is alert, she is more responsive although sometimes confused Physical Exam Vital Signs: Temp Pulse Resp BP Pulse Ox 97.9 F 63 22 H 127/74 H 100 04/22/16 11:58 04/22/16 11:58 04/22/16 11:58 04/22/16 11:58 04/22/16 11:58 Intake & Output 04/21/16 04/22/16 04/23/16 06:59 06:59 06:59 Intake Total 2488 1300 50 Output Total 0 Balance 2488 1300 50 Weight 74.6 kg 73.5 kg General appearance: PRESENT: no acute distress Eye exam: PRESENT: PERRLA Respiratory exam: PRESENT: clear to auscultation anant Cardiovascular exam: PRESENT: +S1, +S2 Neurological exam: PRESENT: alert Results Laboratory Results: 04/22/16 15:15 04/22/16 15:15 WBC 6.7 RBC 3.71 L Hgb 10.4 L Hct 32.8 L MCV 88 MCH 28.0 MCHC 31.7 L RDW 15.4 H Plt Count 381 04/19/16 06:30 Leg - Cellulitis Gram Stain - Final 04/19/16 06:30 Leg - Cellulitis Wound Culture - Final Pseudomonas Aeruginosa Mrsa (Meth Resis Staph Aureus) Group C Beta Streptococcus 04/18/16 04/18/16 04/19/16 19:55 19:55 01:54 Creatine Kinase 76 CK-MB (CK-2) 2.29 2.43 Troponin I 0.015 < 0.012 04/19/16 04/19/16 04/19/16 08:07 08:07 08:07 Creatine Kinase Cancelled 201 H CK-MB (CK-2) 3.88 Troponin I < 0.012 Impressions: Chest X-Ray 04/18/16 00:00 IMPRESSION: 1. CARDIAC ENLARGEMENT WITH MILD ATELECTASIS AND SMALL RIGHT PLEURAL EFFUSION. 2. LARGE HIATAL HERNIA. Assessment & Plan - Diagnosis (1) Sepsis Qualifiers: Sepsis type: sepsis due to unspecified organism Qualified Code(s): A41.9 - Sepsis, unspecified organism Is this a current diagnosis for this admission?: YesPlan: She met sepsis criteria including severe confusion, severe leukocytosis, lactic acidosis, the sepsis is likely due to UTI, cellulitis of lymphedema, she will empirically be treated with aztreonam, Zyvox and tigecycline. This will cover all potential organisms including MRSA, gram-negative organisms (2) Urinary tract infection Qualifiers: Urinary tract infection type: acute cystitis Hematuria presence: without hematuria Qualified Code(s): N30.00 - Acute cystitis without hematuria Is this a current diagnosis for this admission?: Yes (3) Cellulitis Qualifiers: Site of cellulitis: unspecified site Qualified Code(s): L03.90 - Cellulitis, unspecified Is this a current diagnosis for this admission?: Yes (4) UTI due to Klebsiella species Is this a current diagnosis for this admission?: YesPlan: Continue IV aztreonam (5) Methicillin resistant Staph aureus culture positive Is this a current diagnosis for this admission?: YesPlan: Continue IV Zyvox
[2016-04-22] MEDS: LATANOPROST 0.005% OPH SOLN 2.5 ML OU SCH (21:44)
[2016-04-22] MEDS: FENTANYL 25 MCG/HR PATCH.TD72 TD SCH (21:47)
[2016-04-22] MEDS: HYDROCORTISONE 1% CREAM 28.35 GM TP SCH (21:47)
[2016-04-23] MEDS: HYDROMORPHONE HCL 2 MG TABLET PO PRN ×2 (05:40→14:59)
[2016-04-23] MEDS: HEPARIN SOD (PORCINE) 5,000 UNIT/ML 1 ML SYRINGE SUBCUT SCH ×3 (05:41→22:02)
[2016-04-23] MEDS: AZTREONAM 1 GM in DEXTROSE 5%-WATER 50 ML IV SCH ×3 (06:18→22:07)
[2016-04-23] MEDS: METOPROLOL SUCCINATE 50 MG TAB.SR.24H PO SCH (09:35)
[2016-04-23] MEDS: DOCUSATE SODIUM 100 MG CAPSULE PO SCH ×2 (09:36→22:02)
[2016-04-23] MEDS: MULTIVITAMIN TABLET PO SCH (09:37)
[2016-04-23] MEDS: LEVETIRACETAM 500 MG TABLET PO SCH ×2 (09:37→22:02)
[2016-04-23] MEDS: LORATADINE 10 MG TABLET PO SCH (09:37)
[2016-04-23] MEDS: LINEZOLID 600 MG TABLET PO SCH ×2 (09:37→22:02)
[2016-04-23] MEDS: LANSOPRAZOLE 15 MG TAB.RAP.DR PO SCH (09:38)
[2016-04-23] MEDS: BRIMONIDINE TARTRATE 0.2% OPH SOLN 5 ML OU SCH ×2 (09:41→22:05)
[2016-04-23] MEDS: DORZOLAMIDE HCL 2%/TIMOLOL MALEAT 0.5% OPH SOLN 10 ML OU SCH ×2 (09:41→22:04)
--- NOTE | 2016-04-23 15:24 | PDOC PROGRESS REPORT ---
Subjective Progress Note for:: 04/23/16 Subjective:: Patient continue to express generalized body aches and pain. Remain on Diluadid therapy for pain management. There is no reported significant side effects. She remain on IV Linezolid and Aztreonam coverage for MRSA and P. aeruginosa cellulitis of lower extremities and K. penumoniae UTI management. No chest pain. Remain on supplemental oxygen via nasal cannula. No reported nausea or vomiting. No abdominal pain or constipation. Physical Exam Vital Signs: Temp Pulse Resp BP Pulse Ox 98.0 F 47 L 20 111/96 H 99 04/23/16 11:13 04/23/16 11:13 04/23/16 11:13 04/23/16 11:13 04/23/16 11:13 Intake & Output 04/22/16 04/23/16 04/24/16 06:59 06:59 06:59 Intake Total 1300 1971 Output Total 0 Balance 1300 1971 Weight 73.5 kg 72.6 kg General appearance: PRESENT: no acute distress, cooperative, obese Head exam: PRESENT: atraumatic, normocephalic Eye exam: PRESENT: conjunctiva pink, EOMI, PERRLA Respiratory exam: ABSENT: accessory muscle use, chest wall tenderness, clear to auscultation anant, crackles, decreased breath sounds, prolonged expiratory phas, rales, retraction, rhonchi, stridor, symmetrical, tachypnea, unlabored, wheezes , other Cardiovascular exam: PRESENT: RRR. ABSENT: diastolic murmur, rubs, systolic murmur GI/Abdominal exam: PRESENT: normal bowel sounds, soft. ABSENT: distended, guarding, mass, organolmegaly, rebound, tenderness Musculoskeletal exam: PRESENT: deformity - related to arthritis involvement of multiple joints Neurological exam: PRESENT: alert, awake Psychiatric exam: PRESENT: appropriate affect, normal mood. ABSENT: homicidal ideation, suicidal ideation Skin exam: PRESENT: erythema - both legs, rash - both legs, warm, other - pressure ulcers on right heel and sacral regions. There is left calf muscle region open ulcer. Results Laboratory Results: 04/22/16 15:15 04/22/16 15:15 04/22/16 04/22/16 15:15 15:15 WBC 6.7 RBC 3.71 L Hgb 10.4 L Hct 32.8 L MCV 88 MCH 28.0 MCHC 31.7 L RDW 15.4 H Plt Count 381 Sodium 139.9 Potassium 3.9 Chloride 111 H Carbon Dioxide 21 L Anion Gap 8 BUN 12 Creatinine 0.53 Est GFR ( Amer) > 60 Est GFR (Non-Af Amer) > 60 Glucose 118 H Calcium 7.5 L 04/18/16 04/18/16 04/19/16 19:55 19:55 01:54 Creatine Kinase 76 CK-MB (CK-2) 2.29 2.43 Troponin I 0.015 < 0.012 04/19/16 04/19/16 04/19/16 08:07 08:07 08:07 Creatine Kinase Cancelled 201 H CK-MB (CK-2) 3.88 Troponin I < 0.012 Impressions: Chest X-Ray 04/18/16 00:00 IMPRESSION: 1. CARDIAC ENLARGEMENT WITH MILD ATELECTASIS AND SMALL RIGHT PLEURAL EFFUSION. 2. LARGE HIATAL HERNIA. Assessment & Plan - Diagnosis (1) Abscess and cellulitis Is this a current diagnosis for this admission?: YesPlan: Continue IV Linezolid and Aztreonam coverage. (2) Methicillin resistant Staph aureus culture positive Is this a current diagnosis for this admission?: YesPlan: Continue IV Linezolid and Aztreonam coverage. (3) UTI due to Klebsiella species Is this a current diagnosis for this admission?: YesPlan: Continue IV Linezolid and Aztreonam coverage. (4) Lymphedema of both lower extremities Is this a current diagnosis for this admission?: YesPlan: Continue current medical supportive therapy. (5) Protein-calorie malnutrition, severe Is this a current diagnosis for this admission?: YesPlan: In view of her presenting pressure ulcers. She will benefit from Beneprotein and calorie supplementation. - Time Time Spent with patient: 25-34 minutes Medications reviewed and adjusted accordingly: Yes Anticipated discharge: SNF - Inpatient Certification Based on my medical assessment, after consideration of the patient's comorbidities, presenting symptoms, or acuity I expect that the services needed warrant INPATIENT care.: Yes I certify that my determination is in accordance with my understanding of Medicare's requirements for reasonable and necessary INPATIENT services [42 CFR 412.3e].: Yes Medical Necessity: Need For Continuous Telemetry Monitoring, Need for IV Antibiotics, Risk of Complication if Not Cared For in Hospital Post Hospital Care: D/C or Transfer Summary - Plan Summary Plan Summary: See covering physician orders.
[2016-04-23] MEDS: LATANOPROST 0.005% OPH SOLN 2.5 ML OU SCH (22:05)
[2016-04-23] MEDS: NORMAL SALINE 1000 ML 1,000 ML IV PRN (22:11)
[2016-04-24] MEDS: HYDROMORPHONE HCL 2 MG TABLET PO PRN ×3 (03:42→23:41)
[2016-04-24 04:40] LABS: ALANINE AMINOTRANSFERASE 19 U/L (9-52); ALBUMIN 1.9 g/dL (3.5-5.0); ALKALINE PHOSPHATASE 84 U/L (38-126); ANION GAP 5 (5-19); ASPARTATE AMINO TRANSFERASE 22 U/L (14-36); BILIRUBIN,TOTAL 0.3 mg/dL (0.2-1.3); BLOOD UREA NITROGEN 10 mg/dL (7-20); CALCIUM 7.3 mg/dL (8.4-10.2); CARBON DIOXIDE 22 mmol/L (22-30); CHLORIDE 113 mmol/L (98-107); CREATININE RESULT 0.49 mg/dL (0.52-1.25); GLUCOSE 77 mg/dL (75-110); POTASSIUM 3.8 mmol/L (3.6-5.0); SODIUM 139.7 mmol/L (137-145); TOTAL PROTEIN 5.6 g/dL (6.3-8.2)
[2016-04-24] MEDS: HEPARIN SOD (PORCINE) 5,000 UNIT/ML 1 ML SYRINGE SUBCUT SCH ×3 (05:54→21:00)
[2016-04-24] MEDS: AZTREONAM 1 GM in DEXTROSE 5%-WATER 50 ML IV SCH ×3 (06:33→22:32)
[2016-04-24 07:08] LABS: ABSOLUTE EOSINOPHILS # (AUTO) 0.1 10^3/uL (0.0-0.6); ABSOLUTE LYMPHOCYTES (AUTO) 1.6 10^3/uL (0.5-4.7); ABSOLUTE MONOCYTES (AUTO) 0.4 10^3/uL (0.1-1.4); ABSOLUTE NEUT (AUTO) 4.5 10^3/uL (1.7-8.2); BASOPHILS % (AUTO) 0.5 % (0-2); EOSINOPHILS % (AUTO) 0.9 % (0-6); HEMATOCRIT 32.1 % (36.0-47.0); HEMOGLOBIN 10.4 g/dL (12.0-15.5); HGB HCT DIFFERENCE -0.9; LYMPHOCYTES % (AUTO) 23.8 % (13-45); MEAN CORPUSCULAR HEMOGLOBIN 28.4 pg (27.0-33.4); MEAN CORPUSCULAR HGB CONC 32.3 g/dL (32.0-36.0); MEAN CORPUSCULAR VOLUME 88 fl (80-97); MONOCYTES % (AUTO) 5.9 % (3-13); RED BLOOD COUNT 3.64 10^6/uL (3.72-5.28); SEGMENTED NEUTROPHILS % (AUTO) 68.9 % (42-78); WHITE BLOOD COUNT 6.5 10^3/uL (4.0-10.5)
[2016-04-24] MEDS: BRIMONIDINE TARTRATE 0.2% OPH SOLN 5 ML OU SCH ×2 (11:09→21:05)
[2016-04-24] MEDS: DORZOLAMIDE HCL 2%/TIMOLOL MALEAT 0.5% OPH SOLN 10 ML OU SCH ×2 (11:10→21:04)
[2016-04-24] MEDS: MULTIVITAMIN TABLET PO SCH (11:11)
[2016-04-24] MEDS: LINEZOLID 600 MG TABLET PO SCH ×2 (11:11→21:01)
[2016-04-24] MEDS: LORATADINE 10 MG TABLET PO SCH (11:11)
[2016-04-24] MEDS: LANSOPRAZOLE 15 MG TAB.RAP.DR PO SCH (11:11)
[2016-04-24] MEDS: DOCUSATE SODIUM 100 MG CAPSULE PO SCH ×2 (11:11→21:03)
[2016-04-24] MEDS: METOPROLOL SUCCINATE 50 MG TAB.SR.24H PO SCH (11:12)
[2016-04-24] MEDS: LEVETIRACETAM 500 MG TABLET PO SCH ×2 (11:13→21:02)
--- NOTE | 2016-04-24 13:58 | PDOC PROGRESS REPORT ---
Subjective Progress Note for:: 04/24/16 Subjective:: Patient denied nay chest pain or difficulty with breathing. Very adamant about getting her Diluadid [id number]. Refusing oral supplementation and vitamin administration. No reported fever. nausea, vomiting or abdominal pain. Physical Exam Vital Signs: Temp Pulse Resp BP Pulse Ox 98.0 F 68 18 159/89 H 100 04/24/16 11:32 04/24/16 11:32 04/24/16 11:32 04/24/16 11:32 04/24/16 11:32 Intake & Output 04/23/16 04/24/16 04/25/16 06:59 06:59 06:59 Intake Total 1971 1924 Balance 1971 1924 Weight 72.6 kg 73.8 kg Physical Exam: General appearance: PRESENT: no acute distress, cooperative, obese Head exam: PRESENT: atraumatic, normocephalic Eye exam: PRESENT: conjunctiva pink, EOMI, PERRLA Respiratory exam: ABSENT: accessory muscle use, chest wall tenderness, clear to auscultation anant, crackles, decreased breath sounds, prolonged expiratory phas, rales, retraction, rhonchi, stridor, symmetrical, tachypnea, unlabored, wheezes , other Cardiovascular exam: PRESENT: RRR. ABSENT: diastolic murmur, rubs, systolic murmur GI/Abdominal exam: PRESENT: normal bowel sounds, soft. ABSENT: distended, guarding, mass, organolmegaly, rebound, tenderness Musculoskeletal exam: PRESENT: deformity - related to arthritis involvement of multiple joints Neurological exam: PRESENT: alert, awake Psychiatric exam: PRESENT: appropriate affect, normal mood. ABSENT: homicidal ideation, suicidal ideation Skin exam: PRESENT: erythema - both legs, rash - both legs, warm, other - pressure ulcers on right heel and sacral regions. There is left calf muscle region open ulcer. Results Laboratory Results: 04/24/16 06:31 04/24/16 03:43 04/24/16 04/24/16 04/24/16 03:43 03:43 06:31 WBC Cancelled 6.5 RBC Cancelled 3.64 L Hgb Cancelled 10.4 L Hct Cancelled 32.1 L MCV Cancelled 88 MCH Cancelled 28.4 MCHC Cancelled 32.3 RDW Cancelled 15.0 H Plt Count Cancelled 333 Seg Neutrophils % Cancelled 68.9 Lymphocytes % Cancelled 23.8 Monocytes % Cancelled 5.9 Eosinophils % Cancelled 0.9 Basophils % Cancelled 0.5 Absolute Neutrophils Cancelled 4.5 Absolute Lymphocytes Cancelled 1.6 Absolute Monocytes Cancelled 0.4 Absolute Eosinophils Cancelled 0.1 Absolute Basophils Cancelled 0.0 Sodium 139.7 Potassium 3.8 Chloride 113 H Carbon Dioxide 22 Anion Gap 5 BUN 10 Creatinine 0.49 L Est GFR ( Amer) > 60 Est GFR (Non-Af Amer) > 60 Glucose 77 Calcium 7.3 L Total Bilirubin 0.3 AST 22 ALT 19 Alkaline Phosphatase 84 Total Protein 5.6 L Albumin 1.9 L 04/18/16 04/18/16 04/19/16 19:55 19:55 01:54 Creatine Kinase 76 CK-MB (CK-2) 2.29 2.43 Troponin I 0.015 < 0.012 04/19/16 04/19/16 04/19/16 08:07 08:07 08:07 Creatine Kinase Cancelled 201 H CK-MB (CK-2) 3.88 Troponin I < 0.012 Impressions: Chest X-Ray 04/18/16 00:00 IMPRESSION: 1. CARDIAC ENLARGEMENT WITH MILD ATELECTASIS AND SMALL RIGHT PLEURAL EFFUSION. 2. LARGE HIATAL HERNIA. Assessment & Plan - Diagnosis (1) Abscess and cellulitis Is this a current diagnosis for this admission?: YesPlan: Continue IV Linezolid and Aztreonam coverage. (2) Methicillin resistant Staph aureus culture positive Is this a current diagnosis for this admission?: YesPlan: Continue IV Linezolid and Aztreonam coverage. (3) UTI due to Klebsiella species Is this a current diagnosis for this admission?: YesPlan: Continue IV Linezolid and Aztreonam coverage. (4) Lymphedema of both lower extremities Is this a current diagnosis for this admission?: Yes (5) Protein-calorie malnutrition, severe Is this a current diagnosis for this admission?: YesPlan: Encouraged compliance with protein and calorie oral supplementation. - Time Time Spent with patient: 25-34 minutes Medications reviewed and adjusted accordingly: Yes Anticipated discharge: SNF Within: Other - Inpatient Certification Medical Necessity: Significant Comorbidiites Make Outpatient Treatment Too Risky , Need For IV Fluids, Need For Continuous Telemetry Monitoring, Need for IV Antibiotics, Risk of Complication if Not Cared For in Hospital Post Hospital Care: D/C or Transfer Summary - Plan Summary Plan Summary: See covering physician orders.
[2016-04-24] MEDS: FENTANYL 25 MCG/HR PATCH.TD72 TD SCH (21:01)
[2016-04-24] MEDS: HYDROCORTISONE 1% CREAM 28.35 GM TP SCH (21:06)
[2016-04-24] MEDS: LATANOPROST 0.005% OPH SOLN 2.5 ML OU SCH (21:06)
[2016-04-25] MEDS: HEPARIN SOD (PORCINE) 5,000 UNIT/ML 1 ML SYRINGE SUBCUT SCH ×3 (05:27→22:13)
[2016-04-25] MEDS: HYDROMORPHONE HCL 2 MG TABLET PO PRN ×3 (05:57→18:00)
[2016-04-25] MEDS: AZTREONAM 1 GM in DEXTROSE 5%-WATER 50 ML IV SCH ×3 (06:01→22:16)
[2016-04-25] MEDS: LEVETIRACETAM 500 MG TABLET PO SCH ×2 (09:50→22:13)
[2016-04-25] MEDS: METOPROLOL SUCCINATE 50 MG TAB.SR.24H PO SCH (09:50)
[2016-04-25] MEDS: LINEZOLID 600 MG TABLET PO SCH ×2 (09:50→22:13)
[2016-04-25] MEDS: LORATADINE 10 MG TABLET PO SCH (09:50)
[2016-04-25] MEDS: DORZOLAMIDE HCL 2%/TIMOLOL MALEAT 0.5% OPH SOLN 10 ML OU SCH ×2 (09:51→22:15)
[2016-04-25] MEDS: BRIMONIDINE TARTRATE 0.2% OPH SOLN 5 ML OU SCH ×2 (09:51→22:15)
[2016-04-25] MEDS: MULTIVITAMIN TABLET PO SCH (09:52)
[2016-04-25] MEDS: DOCUSATE SODIUM 100 MG CAPSULE PO SCH ×2 (09:52→22:16)
[2016-04-25] MEDS: LANSOPRAZOLE 15 MG TAB.RAP.DR PO SCH (09:52)
[2016-04-25] MEDS: NORMAL SALINE 1000 ML 1,000 ML IV PRN (15:54)
--- NOTE | 2016-04-25 20:56 | PDOC PROGRESS REPORT ---
Subjective Progress Note for:: 04/25/16 Subjective:: Patient was seen by the bedside, she has acute gouty arthropathy of the right wrist, she was admitted because of sepsis from UTI and cellulitis Physical Exam Vital Signs: Temp Pulse Resp BP Pulse Ox 99.3 F 73 20 148/76 H 100 04/25/16 15:35 04/25/16 19:00 04/25/16 15:35 04/25/16 15:35 04/25/16 18:06 Intake & Output 04/24/16 04/25/16 04/26/16 06:59 06:59 06:59 Intake Total 1925 2533 683 Balance 1925 2533 683 Weight 73.8 kg 74.2 kg General appearance: PRESENT: no acute distress Eye exam: PRESENT: PERRLA Respiratory exam: PRESENT: clear to auscultation anant Cardiovascular exam: PRESENT: +S1, +S2 GI/Abdominal exam: PRESENT: soft Extremities exam: PRESENT: other - Swelling of the right wrist Neurological exam: PRESENT: alert Results Laboratory Results: 04/24/16 06:31 04/24/16 03:43 04/18/16 04/18/16 04/19/16 19:55 19:55 01:54 Creatine Kinase 76 CK-MB (CK-2) 2.29 2.43 Troponin I 0.015 < 0.012 04/19/16 04/19/16 04/19/16 08:07 08:07 08:07 Creatine Kinase Cancelled 201 H CK-MB (CK-2) 3.88 Troponin I < 0.012 Impressions: Chest X-Ray 04/18/16 00:00 IMPRESSION: 1. CARDIAC ENLARGEMENT WITH MILD ATELECTASIS AND SMALL RIGHT PLEURAL EFFUSION. 2. LARGE HIATAL HERNIA. Assessment & Plan - Diagnosis (1) Sepsis Qualifiers: Sepsis type: sepsis due to unspecified organism Qualified Code(s): A41.9 - Sepsis, unspecified organism Is this a current diagnosis for this admission?: Yes (2) Urinary tract infection Qualifiers: Urinary tract infection type: acute cystitis Hematuria presence: without hematuria Qualified Code(s): N30.00 - Acute cystitis without hematuria Is this a current diagnosis for this admission?: Yes (3) Cellulitis Qualifiers: Site of cellulitis: unspecified site Qualified Code(s): L03.90 - Cellulitis, unspecified Is this a current diagnosis for this admission?: Yes (4) UTI due to Klebsiella species Is this a current diagnosis for this admission?: Yes (5) Methicillin resistant Staph aureus culture positive Is this a current diagnosis for this admission?: Yes (6) Acute gouty arthritis Is this a current diagnosis for this admission?: YesPlan: Start colcry 0.6mg PO BID
[2016-04-25] MEDS: COLCHICINE 0.6 MG TABLET PO SCH (22:13)
[2016-04-25] MEDS: LATANOPROST 0.005% OPH SOLN 2.5 ML OU SCH (22:14)
[2016-04-26] MEDS: HYDROMORPHONE HCL 2 MG TABLET PO PRN ×3 (02:59→18:03)
[2016-04-26] MEDS: HEPARIN SOD (PORCINE) 5,000 UNIT/ML 1 ML SYRINGE SUBCUT SCH ×3 (06:26→21:48)
[2016-04-26] MEDS: AZTREONAM 1 GM in DEXTROSE 5%-WATER 50 ML IV SCH ×3 (07:53→22:15)
[2016-04-26] MEDS: METOPROLOL SUCCINATE 50 MG TAB.SR.24H PO SCH (09:40)
[2016-04-26] MEDS: DOCUSATE SODIUM 100 MG CAPSULE PO SCH ×2 (09:41→21:54)
[2016-04-26] MEDS: LINEZOLID 600 MG TABLET PO SCH ×2 (09:41→21:47)
[2016-04-26] MEDS: COLCHICINE 0.6 MG TABLET PO SCH ×2 (09:42→21:48)
[2016-04-26] MEDS: LEVETIRACETAM 500 MG TABLET PO SCH ×2 (09:42→21:47)
[2016-04-26] MEDS: MULTIVITAMIN TABLET PO SCH (09:42)
[2016-04-26] MEDS: LORATADINE 10 MG TABLET PO SCH (09:43)
[2016-04-26] MEDS: LANSOPRAZOLE 15 MG TAB.RAP.DR PO SCH (09:43)
[2016-04-26] MEDS: BRIMONIDINE TARTRATE 0.2% OPH SOLN 5 ML OU SCH ×2 (09:47→21:49)
[2016-04-26] MEDS: DORZOLAMIDE HCL 2%/TIMOLOL MALEAT 0.5% OPH SOLN 10 ML OU SCH ×2 (09:47→21:49)
[2016-04-26] MEDS: NORMAL SALINE 1000 ML 1,000 ML IV PRN (13:41)
[2016-04-26] MEDS: FENTANYL 25 MCG/HR PATCH.TD72 TD SCH (21:47)
[2016-04-26] MEDS: LATANOPROST 0.005% OPH SOLN 2.5 ML OU SCH (21:52)
[2016-04-26] MEDS: HYDROCORTISONE 1% CREAM 28.35 GM TP SCH (21:54)
[2016-04-27] MEDS: HYDROMORPHONE HCL 2 MG TABLET PO PRN ×2 (03:29→11:24)
[2016-04-27] MEDS: AZTREONAM 1 GM in DEXTROSE 5%-WATER 50 ML IV SCH ×2 (06:38→16:18)
[2016-04-27] MEDS: HEPARIN SOD (PORCINE) 5,000 UNIT/ML 1 ML SYRINGE SUBCUT SCH ×2 (06:39→13:37)
[2016-04-27] MEDS: LINEZOLID 600 MG TABLET PO SCH (11:08)
[2016-04-27] MEDS: METOPROLOL SUCCINATE 50 MG TAB.SR.24H PO SCH (11:08)
[2016-04-27] MEDS: LORATADINE 10 MG TABLET PO SCH (11:09)
[2016-04-27] MEDS: DOCUSATE SODIUM 100 MG CAPSULE PO SCH (11:10)
[2016-04-27] MEDS: LEVETIRACETAM 500 MG TABLET PO SCH (11:22)
[2016-04-27] MEDS: MULTIVITAMIN TABLET PO SCH (11:23)
[2016-04-27] MEDS: COLCHICINE 0.6 MG TABLET PO SCH (11:23)
[2016-04-27] MEDS: LANSOPRAZOLE 15 MG TAB.RAP.DR PO SCH (11:24)
[2016-04-27] MEDS: BRIMONIDINE TARTRATE 0.2% OPH SOLN 5 ML OU SCH (11:25)
[2016-04-27] MEDS: DORZOLAMIDE HCL 2%/TIMOLOL MALEAT 0.5% OPH SOLN 10 ML OU SCH (11:31)
[2016-04-27] MEDS: NORMAL SALINE 1000 ML 1,000 ML IV PRN (13:36)
--- NOTE | 2016-04-27 15:43 | PDOC TRANSFER SUMMARY ---
General - Admit/Disc Date/PCP Admission Date/Primary Care Provider: 04/18/16 19:08 [facility] Discharge Date: 04/27/16 - Discharge Diagnosis (1) Sepsis Is this a current diagnosis for this admission?: YesSummary: Due to MRSA cellulitis and Klebsiella UTI (2) Methicillin resistant Staph aureus culture positive Is this a current diagnosis for this admission?: Yes (3) Urinary tract infection Is this a current diagnosis for this admission?: Yes (4) Cellulitis Is this a current diagnosis for this admission?: Yes (5) UTI due to Klebsiella species Is this a current diagnosis for this admission?: Yes (6) Acute gouty arthritis Is this a current diagnosis for this admission?: YesSummary: Acute gout of the right wrist, respond to colchicine (7) Sepsis with metabolic encephalopathy Is this a current diagnosis for this admission?: Yes - Additional Information Resuscitation Status: Do Not Resuscitate Home Medications: Brimonidine Tartrate [Alphagan 0.2% Oph Soln 5 ml] 1 drop OU Q12 04/18/16 Diphenhydramine HCl [Benadryl Elixir 25 mg/10 ml Ud Cup] 5 ml PO BIDP PRN Docusate Sodium [Colace 100 mg Capsule] 100 mg PO BID 04/18/16 Dorzolamide HCl/Timolol Maleat [Cosopt Eye Drops] 1 drop OU Q12 04/18/16 Fentanyl [Duragesic 25 mcg/hr Transdermal Patch] 1 each TD Q2DAYS 04/18/16 Hydrocortisone [Hydrocortisone 1% Cream 28.35 gm] 1 applic TP Q2DAYS 04/18/16 Hydromorphone HCl [Dilaudid 2 mg Tablet] 8 mg PO Q6HP PRN 04/18/16 Latanoprost [Xalatan 0.005% Oph Soln 2.5 ml] 1 drop OU QHS 04/18/16 Levetiracetam 500 mg PO Q12 04/18/16 Loratadine [Claritin] 10 mg PO DAILY 04/18/16 Metoprolol Succinate [Toprol Xl] 100 mg PO DAILY 04/18/16 Multivitamin [Multivitamins] 1 each PO DAILY 04/18/16 Omeprazole 20 mg PO DAILY 04/18/16 Ondansetron HCl [Zofran 8 mg Tablet] 8 mg PO Q8HP PRN 04/18/16 Paroxetine HCl [Paxil] 10 mg PO DAILY 04/18/16 History of Present Illness Admission Date/PCP: 04/18/16 19:08 [facility] History of Present Illness: THAO TARIQ is a 75 year old female with multiple medical problems including chronic lymphedema, chronic debilitation, she is a resident of the senior care at [facility]. She was transferred from the senior care to the emergency room because of sepsis. Patient was obtunded,History taking was impossible, she was seen and evaluated in emergency room, she was found to have severe leukocytosis, the WBC count was 38,000 with a left shift, the temperature was 102, there are many potential sources of the sepsis including infected lymphedema, UTI, pneumonia. The chest x-ray did not suggest pneumonia, the encephalopathy is most likely from the sepsis. She presented in a similar fashion in 12/10/2015 when she presented with severe sepsis at the time she had pneumonia. CT chest that was done then showed moderate large right pleural effusion.. She has a long list of drug allergy including allergy to penicillin, ciprofloxacin, vancomycin etc. Hospital Course Hospital Course: Patient was admitted with severe sepsis due to combination of cellulitis complicating chronic lymphedema of both legs and UTI from Klebsiella. She was treated with IV antibiotic including intravenous aztreonam and intravenous Zyvox. On admission she was obtunded, came in very actively ill, but she did respond to treatment. She regained full consciousness. Hospital course was complicated with acute gout of the right wrist,This was treated with by mouth colchicine. The urine culture grew Klebsiella, the culture from the leg grew MRSA and gram-negative rods. Patient is back to her baseline mental status, she has background dementia with periods of confusion and lucidity. She will be transfer back to senior care for continuity of care. Physical Exam Vital Signs: Temp Pulse Resp BP Pulse Ox 97.7 F 78 20 149/68 H 98 04/27/16 12:09 04/27/16 14:00 04/27/16 12:09 04/27/16 12:09 04/27/16 12:09 Intake & Output 04/26/16 04/27/16 04/28/16 06:59 06:59 06:59 Intake Total 1772 1550 Balance 1772 1550 Weight 73.5 kg 76.2 kg General appearance: PRESENT: no acute distress Eye exam: PRESENT: PERRLA Respiratory exam: PRESENT: clear to auscultation anant Cardiovascular exam: PRESENT: +S1, +S2 GI/Abdominal exam: PRESENT: soft Extremities exam: PRESENT: other - There is lymphedema of both legs Neurological exam: PRESENT: alert, CN II-XII grossly intact Results Laboratory Results: 04/24/16 06:31 04/24/16 03:43 04/18/16 04/18/16 04/19/16 19:55 19:55 01:54 Creatine Kinase 76 CK-MB (CK-2) 2.29 2.43 Troponin I 0.015 < 0.012 04/19/16 04/19/16 04/19/16 08:07 08:07 08:07 Creatine Kinase Cancelled 201 H CK-MB (CK-2) 3.88 Troponin I < 0.012 Impressions: Chest X-Ray 04/18/16 00:00 IMPRESSION: 1. CARDIAC ENLARGEMENT WITH MILD ATELECTASIS AND SMALL RIGHT PLEURAL EFFUSION. 2. LARGE HIATAL HERNIA. Plan Discharge Plan: Apply viscospaste to the lower extremities
[2016-04-27 16:34] VITALS: BP 160/71
== END 2016-04-27 20:33 | DRG 871 ==
LOC: ER 11:51 → UNDOADMIN 15:20 → EH 15:20 → 3W 04-19 00:50 → 3N 04-21 08:50
PROVIDERS: ADMIT Internal Medicine; ATTEND Internal Medicine
DX: A41.02 Sepsis due to Methicillin resistant Staphylococcus aureus (principal); G93.41 Metabolic encephalopathy; L97.229 Non-pressure chronic ulcer of left calf with unspecified severity; L03.116 Cellulitis of left lower limb; L03.115 Cellulitis of right lower limb; N39.0 Urinary tract infection, site not specified; B96.1 Klebsiella pneumoniae [K. pneumoniae] as the cause of diseases classified elsewhere; L89.619 Pressure ulcer of right heel, unspecified stage; L89.159 Pressure ulcer of sacral region, unspecified stage; I89.0 Lymphedema, not elsewhere classified; I48.91 Unspecified atrial fibrillation; M10.9 Gout, unspecified; Z66 Do not resuscitate; I10 Essential (primary) hypertension; K21.9 Gastro-esophageal reflux disease without esophagitis; K44.9 Diaphragmatic hernia without obstruction or gangrene; M19.90 Unspecified osteoarthritis, unspecified site; F03.90 Unspecified dementia, unspecified severity, without behavioral disturbance, psychotic disturbance, mood disturbance, and anxiety; Z79.899 Other long term (current) drug therapy; Z90.710 Acquired absence of both cervix and uterus; Z88.0 Allergy status to penicillin; Z88.1 Allergy status to other antibiotic agents; Z88.6 Allergy status to analgesic agent; Z88.8 Allergy status to other drugs, medicaments and biological substances; Z91.041 Radiographic dye allergy status
CPT/HCPCS: 36415; 71010; 80048; 80053; 80076; 81001; 82150; 82550; 82553; 82803; 83036; 83605; 83690; 84439; 84443; 84484; 85025; 85027; 85610; 87040; 87070; 87075; 87077; 87086; 87088; 87186; 87205; 93005; 93010; 96360; 99285; J1644; J2020; J2060; J2270; J3243; J3490; J7030

== ENCOUNTER 2016-04-30 16:44 | Inpatient (IN) | payer MEDICARE ==
[2016-04-30] MEDS ORDERED: AZTREONAM INJ 1 GM VIAL IV ONE (16:49)
[2016-04-30] MEDS ORDERED: NORMAL SALINE 1000 ML 1,000 ML IV ONE ×2 (16:49→17:16)
--- NOTE | 2016-04-30 16:51 | ER Document Report ---
ED General - General Stated Complaint: ALTERED MENTAL STATUS Mode of Arrival: Medic Information source: Emergency Med Personnel Cannot obtain history due to: Altered mental status Notes: 75-year-old female presents altered febrile from care facility. EMS reports that care facility is unsure how long this has been ongoing. Patient is DNR/DNI Patient normally on 2 L nasal cannula, found satting 80% on this in the care facility TRAVEL OUTSIDE OF THE [place] IN LAST 30 DAYS: No - HPI Onset: Other Onset/Duration: Intermittent Quality of pain: No pain Severity: Severe Pain Level: Denies Associated symptoms: Other Exacerbated by: Denies Relieved by: Denies Similar symptoms previously: No Recently seen / treated by doctor: No - Related Data Allergies/Adverse Reactions: cefazolin [Cefazolin] Allergy (Intermediate, Verified 04/30/16 17:38) Penicillins Allergy (Intermediate, Verified 04/30/16 17:38) aspirin [Aspirin] Allergy (Unknown, Verified 04/30/16 17:38) ciprofloxacin [From Cipro] Allergy (Unknown, Verified 04/30/16 17:38) codeine [Codeine] Allergy (Unknown, Verified 04/30/16 17:38) furosemide [From Lasix] Allergy (Unknown, Verified 04/30/16 17:38) metoclopramide HCl [From Reglan] Allergy (Unknown, Verified 04/30/16 17:38) prednisone [Prednisone] Allergy (Unknown, Verified 04/30/16 17:38) Sulfa (Sulfonamide Antibiotics) Allergy (Unknown, Verified 04/30/16 17:38) levofloxacin [From Levaquin] Allergy (Verified 04/30/16 17:38) Iodinated Contrast Media - Oral and Adverse Reaction (Severe, Verified 04/30/16 17:38) Past Medical History - Social History Smoking Status: Never Smoker Cigarette use (# per day): No Chew tobacco use (# tins/day): No Smoking Education Provided: No Family History: Reviewed & Not Pertinent - Past Medical History Cardiac Medical History: Reports: Hx Atrial Fibrillation, Hx Hypertension Pulmonary Medical History: Reports: Hx Pneumonia Neurological Medical History: Reports: Hx Seizures GI Medical History: Reports: Hx Gastroesophageal Reflux Disease, Hx Hiatal Hernia, Hx Ulcer Musculoskeltal Medical History: Reports Hx Arthritis Skin Medical History: Reports Hx Cellulitis - Chronic, Reports Hx MRSA Psychiatric Medical History: Reports: Hx Anxiety, Hx Dementia, Hx Depression Traumatic Medical History: Reports: Hx Fractures Infectious Medical History: Reports: Hx MRSA Past Surgical History: Reports: Hx Abdominal Surgery - abd hernia repair x1, Hx Appendectomy, Hx Bowel Surgery, Hx Herniorrhaphy, Hx Hysterectomy, Hx Orthopedic Surgery - back, Hx Rectal Surgery - rectal prolapse repair, Hx Tonsillectomy, Hx Urinary Tract Surgery. Denies: Hx Section, Hx Cholecystectomy, Hx Mastectomy, Hx Tubal Ligation - Immunizations Immunizations up to date: Yes Hx Diphtheria, Pertussis, Tetanus Vaccination: Yes Hx Pneumococcal Vaccination: 08/11/10 Review of Systems - Review of Systems Notes: PHYSICAL EXAMINATION: GENERAL: Ill-appearing female significant respiratory distress afebrile HEAD: Atraumatic, normocephalic. EYES: Pupils equal round and reactive to light, extraocular movements intact, conjunctiva are normal. ENT: Nares patent, oropharynx clear without exudates. Moist mucous membranes. NECK: Normal range of motion, supple without lymphadenopathy LUNGS: Coarse Breath sounds all throughout HEART: Tachycardic ABDOMEN: Soft, nontender, nondistended abdomen. No guarding, no rebound. No masses appreciated. Female : deferred Musculoskeletal: Normal range of motion, no pitting or edema. No cyanosis. NEUROLOGICAL: Patient moving the left extremity PSYCH: Unable to assess SKIN: Bilateral lower extremity is erythematous with dry scaly wounds -: Yes ROS unobtainable due to patient's medical condition Physical Exam - Vital signs Vitals: Temp Pulse Resp BP Pulse Ox 104.2 F H 120 H 28 H 97/63 L 98 04/30/16 16:45 04/30/16 16:45 04/30/16 16:45 04/30/16 16:45 04/30/16 16:45 Course - Re-evaluation Re-evalutation: 04/30/16 16:51 Patient appears septic, IV fluids antibiotics lab work imaging are pending at this time 04/30/16 18:02 04/30/16 18:06 Patient does have elevated white count tachycardia fever probable pneumonia given hypoxemia, initial Steve on and given Invanz ordered as well patient has extensive allergies which makes it difficult to treat her with appropriate antibiotic - Vital Signs Vital signs: Temp Pulse Resp BP Pulse Ox 103.9 F H 120 H 20 88/78 L 98 04/30/16 17:35 04/30/16 16:45 04/30/16 17:35 04/30/16 16:54 04/30/16 17:35 - Laboratory Result Diagrams: 04/30/16 17:09 04/30/16 17:09 Laboratory results interpreted by me: 04/30/16 04/30/16 04/30/16 17:09 17:09 17:09 WBC 16.8 H Hgb 11.5 L RDW 15.5 H Seg Neutrophils % 79.8 H Lymphocytes % 11.8 L Absolute Neutrophils 13.4 H PT 15.5 H VBG pH VBG pCO2 Chloride 94 L Carbon Dioxide 31 H BUN 4 L Lactic Acid Calcium 7.4 L AST 68 H Albumin 3.4 L Urine Protein Urine Blood 04/30/16 04/30/16 04/30/16 17:09 17:09 17:09 WBC Hgb RDW Seg Neutrophils % Lymphocytes % Absolute Neutrophils PT VBG pH 7.25 L VBG pCO2 71.8 H* Chloride Carbon Dioxide BUN Lactic Acid 5.4 H Calcium AST Albumin Urine Protein 100 H Urine Blood SMALL H Critical Care Note - Critical Care Note Total time excluding time spent on procedures (mins): 37 Comments: 37 minutes of critical care time spent in direct contact evaluating and reevaluating the patient, treating symptoms, reviewing labs and studies and speaking with family and consultants excluding any procedures Discharge - Discharge Clinical Impression: Unresponsive episode Sepsis Qualifiers: Sepsis type: sepsis due to unspecified organism Qualified Code(s): A41.9 - Sepsis, unspecified organism Cellulitis Qualifiers: Site of cellulitis: unspecified site Qualified Code(s): L03.90 - Cellulitis, unspecified Condition: Critical Disposition: ADMITTED INPATIENT Admitting Provider: [facility] Unit Admitted: [facility]
[2016-04-30 17:33] LABS: ABSOLUTE MONOCYTES (AUTO) 1.4 10^3/uL (0.1-1.4); ABSOLUTE NEUT (AUTO) 13.4 10^3/uL (1.7-8.2); BASOPHILS % (AUTO) 0.3 % (0-2); HEMOGLOBIN 11.5 g/dL (12.0-15.5); HGB HCT DIFFERENCE -1.5; LYMPHOCYTES % (AUTO) 11.8 % (13-45); MEAN CORPUSCULAR HEMOGLOBIN 27.8 pg (27.0-33.4); MEAN CORPUSCULAR HGB CONC 32.1 g/dL (32.0-36.0); MEAN CORPUSCULAR VOLUME 87 fl (80-97); MONOCYTES % (AUTO) 8.1 % (3-13); RED BLOOD COUNT 4.16 10^6/uL (3.72-5.28); RED CELL DISTRIBUTION WIDTH 15.5 % (11.5-14.0); SEGMENTED NEUTROPHILS % (AUTO) 79.8 % (42-78); WHITE BLOOD COUNT 16.8 10^3/uL (4.0-10.5)
[2016-04-30 17:34] LABS: VENOUS BLOOD BASE EXCESS 0.9 mmol/L; VENOUS BLOOD HCO3 30.9 mmol/L (20-32); VENOUS BLOOD PH 7.25 (7.30-7.42)
[2016-04-30 17:36] LABS: VENOUS BLOOD PCO2 71.8 mmHg (35-63)
[2016-04-30 17:38] LABS: PROTHROMBIN TIME 15.5 SEC (11.4-15.4)
[2016-04-30 17:52] LABS: ALANINE AMINOTRANSFERASE 29 U/L (9-52); ALBUMIN 3.4 g/dL (3.5-5.0); ALKALINE PHOSPHATASE 94 U/L (38-126); ANION GAP 12 (5-19); ASPARTATE AMINO TRANSFERASE 68 U/L (14-36); BILIRUBIN,TOTAL 0.4 mg/dL (0.2-1.3); BLOOD UREA NITROGEN 4 mg/dL (7-20); CALCIUM 7.4 mg/dL (8.4-10.2); CARBON DIOXIDE 31 mmol/L (22-30); CHLORIDE 94 mmol/L (98-107); CREATININE RESULT 0.77 mg/dL (0.52-1.25); GLUCOSE 104 mg/dL (75-110); POTASSIUM 3.7 mmol/L (3.6-5.0); SODIUM 137.2 mmol/L (137-145); TOTAL PROTEIN 7.6 g/dL (6.3-8.2)
[2016-04-30 17:59] LABS: APPEARANCE,URINE CLEAR; BILIRUBIN,URINE NEGATIVE (NEGATIVE); GLUCOSE, URINE NEGATIVE (NEGATIVE); KETONES,URINE NEGATIVE (NEGATIVE); LEUKOCYTE ESTERASE,URINE NEGATIVE (NEGATIVE); NITRITE,URINE NEGATIVE (NEGATIVE); PROTEIN,URINE 100 mg/dL (NEGATIVE); URINE SPECIFIC GRAVITY 1.008; UROBILINOGEN,URINE NEGATIVE mg/dL (<2.0)
[2016-04-30] MEDS ORDERED: ERTAPENEM SODIUM INJ 1 GM VIAL IV ONE (18:03)
[2016-04-30] MEDS ORDERED: NORMAL SALINE 1000 ML 1,000 ML IV PRN (18:25)
[2016-04-30] MEDS ORDERED: LEVETIRACETAM 1500 MG/NACL-ISO 100 ML IV ONE (18:33)
--- NOTE | 2016-04-30 18:34 | EKG REPORT ---
SEVERITY:- ABNORMAL ECG - ARTIFACTS, REC REPEAT EKG, BEST INTERP ATRIAL FIBRILLATION-FLUTTER ARTIFACTS, REC REPEAT EKG RIGHT BUNDLE BRANCH BLOCK ANTERIOR INFARCT, AGE INDETERMINATE : Confirmed by: Parrish Pineda 30-Apr-2016 18:33:43
[2016-04-30] MEDS ORDERED: LEVETIRACETAM 500 MG/NACL-ISO 100 ML IV ONE (18:41)
[2016-04-30] MEDS ORDERED: LEVETIRACETAM 1000 MG/NACL-ISO 100 ML IV ONE (18:42)
[2016-04-30] MEDS ORDERED: HYDROMORPHONE HCL 2 MG TABLET PO PRN (20:13)
[2016-04-30] MEDS ORDERED: LORAZEPAM INJ 2 MG/1 ML VIAL IV ONE (20:23)
[2016-04-30] MEDS ORDERED: LORAZEPAM INJ 2 MG/1 ML VIAL ONE (20:24)
[2016-04-30] MEDS ORDERED: LORATADINE 10 MG TABLET PO ONE (20:45)
[2016-04-30] MEDS ORDERED: FENTANYL 25 MCG/HR PATCH.TD72 TD ONE (20:45)
[2016-04-30] MEDS: NORMAL SALINE 1000 ML 1,000 ML IV PRN (20:54)
[2016-04-30] MEDS ORDERED: AZTREONAM 1 GM in DEXTROSE 5%-WATER 50 ML IV SCH (22:00)
[2016-04-30] MEDS ORDERED: LEVETIRACETAM 500 MG TABLET PO SCH (22:00)
[2016-04-30] MEDS: LATANOPROST 0.005% OPH SOLN 2.5 ML OU SCH (22:00)
[2016-05-01] MEDS ORDERED: FENTANYL 25 MCG/HR PATCH.TD72 TD ONE (01:30)
[2016-05-01] MEDS ORDERED: AZTREONAM 1 GM in DEXTROSE 5%-WATER 50 ML IV ONE (01:30)
[2016-05-01] MEDS ORDERED: LEVETIRACETAM 500 MG/NACL-ISO 500 MG/100 ML RTUPB IV ONE ×2 (01:30→21:22)
[2016-05-01] MEDS ORDERED: AZTREONAM INJ 1 GM VIAL ONE ×2 (04:08→22:27)
[2016-05-01] MEDS: NORMAL SALINE 1000 ML 1,000 ML IV PRN ×3 (07:04→20:35)
[2016-05-01] MEDS: ENOXAPARIN SODIUM INJ 40 MG/0.4 ML DISP.SYRIN SUBCUT SCH (08:51)
[2016-05-01] MEDS: LEVETIRACETAM 500 MG/NACL-ISO 500 MG/100 ML RTUPB IV SCH ×2 (09:37→22:30)
[2016-05-01] MEDS ORDERED: LORATADINE 10 MG TABLET PO SCH (10:00)
[2016-05-01] MEDS: IPRATROPIUM/ALBUTEROL 0.5-2.5 MG/3 ML AMPUL NEB SCH ×2 (13:39→19:56)
[2016-05-01] MEDS ORDERED: PHENYTOIN SODIUM INJ/PF 250 MG/5 ML SDV IV ONE (15:39)
[2016-05-01] MEDS: AZTREONAM 1 GM in DEXTROSE 5%-WATER 50 ML IV SCH ×2 (15:43→22:51)
--- NOTE | 2016-05-01 17:22 | PDOC H&P ---
History of Present Illness Admission Date/PCP: 04/30/16 19:05 DENEEN STRICKLAND MD History of Present Illness: THAO TARIQ is a 75 year old female, she was recently discharged and [facility] when she was admitted for MRSA cellulitis and Klebsiella UTI with severe sepsis from both conditions. She was transferred because she was unresponsive and she had episode of seizure in the [facility] when I saw I the emergency room she was obtunded and did not respond to questions. The venous blood gas that was done showed pH of 7.25, PCO2 71.8 on auscultation of her chest, she sounded gurgly suggesting she probably aspirated. I spoke to the daughter about her condition and overall prognosis. I could not obtain any history from this patient. She is actually not responding to the eyes are open but she would not respond to verbal commands. A stat CT head was done and it was negative for acute pathology. The hemogram revealed leukocytosis with WBC of 15,000 with a left shift, there is also lactic acidemia over 5, this portends a poor prognosis. Past Medical History Cardiac Medical History: Reports: Atrial Fibrillation, Hypertension Pulmonary Medical History: Reports: Pneumonia Neurological Medical History: Reports: Seizures GI Medical History: Reports: Gastroesophageal Reflux Disease, Hiatal Hernia Musculoskeltal Medical History: Reports: Arthritis Psychiatric Medical History: Reports: Dementia, Depression Hematology: Reports: Anemia Infectious Medical History: Reports: Methicillin-Resistant Staph Aureus Past Surgical History Past Surgical History: Reports: Appendectomy, Herniorrhaphy, Hysterectomy, Orthopedic Surgery - back, Tonsillectomy Social History Smoking Status: Never Smoker Frequency of Alcohol Use: None Hx Recreational Drug Use: No Drugs: None Hx Prescription Drug Abuse: No Family History Family History: Reviewed & Not Pertinent Parental Family History Reviewed: Yes Children Family History Reviewed: Yes Sibling(s) Family History Reviewed.: Yes Medication/Allergy Home Medications: Brimonidine Tartrate [Alphagan 0.2% Oph Soln 5 ml] 1 drop OU Q12 05/01/16 Diphenhydramine HCl [Benadryl Elixir 25 mg/10 ml Ud Cup] 25 mg PO BIDP PRN 05/01 Docusate Sodium [Colace 100 mg Capsule] 100 mg PO BID 05/01/16 Dorzolamide HCl/Timolol Maleat [Cosopt Oph Soln 10 ml] 1 drop OU Q12 05/01/16 Fentanyl [Duragesic 25 mcg/hr Transdermal Patch] 1 each TOP Q2DAYS 05/01/16 Hydrocortisone [Hydrocortisone 1% Cream 28.35 gm] 1 applic TOP ASDIR PRN Hydromorphone HCl [Dilaudid] 8 mg PO Q6HP PRN 05/01/16 Latanoprost [Xalatan 0.005% Oph Soln 2.5 ml] 1 drop OU QHS 05/01/16 Levetiracetam [Keppra] 500 mg PO Q12 05/01/16 Loratadine [Claritin 10 mg Tablet] 10 mg PO DAILY 05/01/16 Metoprolol Succinate [Toprol XL 100 mg Tablet] 100 mg PO DAILY 05/01/16 Multivitamin [Daily Multiple Vitamin] 1 each PO DAILY 05/01/16 Omeprazole 20 mg PO DAILY 05/01/16 Ondansetron HCl [Zofran 8 mg Tablet] 8 mg PO Q8HP PRN 05/01/16 Paroxetine HCl [Paxil] 10 mg PO DAILY 05/01/16 Allergies/Adverse Reactions: cefazolin [Cefazolin] Allergy (Intermediate, Verified 04/30/16 17:38) Penicillins Allergy (Intermediate, Verified 04/30/16 17:38) aspirin [Aspirin] Allergy (Unknown, Verified 04/30/16 17:38) ciprofloxacin [From Cipro] Allergy (Unknown, Verified 04/30/16 17:38) codeine [Codeine] Allergy (Unknown, Verified 04/30/16 17:38) furosemide [From Lasix] Allergy (Unknown, Verified 04/30/16 17:38) metoclopramide HCl [From Reglan] Allergy (Unknown, Verified 04/30/16 17:38) prednisone [Prednisone] Allergy (Unknown, Verified 04/30/16 17:38) Sulfa (Sulfonamide Antibiotics) Allergy (Unknown, Verified 04/30/16 17:38) levofloxacin [From Levaquin] Allergy (Verified 04/30/16 17:38) Iodinated Contrast Media - Oral and Adverse Reaction (Severe, Verified 04/30/16 17:38) Review of Systems ROS unobtainable: Due to mental status Physical Exam Vital Signs: Temp Pulse Resp BP Pulse Ox 99.9 F 99 33 H 118/73 98 05/01/16 10:01 05/01/16 13:39 05/01/16 13:39 05/01/16 12:00 05/01/16 13:39 Intake & Output 04/30/16 05/01/16 05/02/16 06:59 06:59 06:59 Weight 64.1 kg General appearance: PRESENT: severe distress Eye exam: PRESENT: PERRLA Respiratory exam: PRESENT: crackles Cardiovascular exam: PRESENT: irregular rhythm, +S1, +S2 GI/Abdominal exam: PRESENT: soft Neurological exam: PRESENT: altered Results Laboratory Results: 05/01/16 16:36 04/30/16 05/01/16 21:35 16:36 Sodium Cancelled Potassium Cancelled Chloride Cancelled Carbon Dioxide Cancelled Anion Gap Cancelled BUN Cancelled Creatinine Cancelled Est GFR ( Amer) Cancelled Est GFR (Non-Af Amer) Cancelled Glucose Cancelled Lactic Acid 3.3 H Calcium Cancelled Total Bilirubin Cancelled AST Cancelled ALT Cancelled Alkaline Phosphatase Cancelled Total Protein Cancelled Albumin Cancelled Impressions: Chest X-Ray 04/30/16 16:49 IMPRESSION: As above. Very limited exam. Head CT 05/01/16 00:00 IMPRESSION: No acute intracranial abnormality. Assessment & Plan - Diagnosis (1) Acute hypercapnic respiratory failure Is this a current diagnosis for this admission?: Yes (2) Unresponsive Is this a current diagnosis for this admission?: YesPlan: The differential diagnosis is long, it seems that she may be having a seizure, she was given loading dose of Dilantin 500 MG IV (3) Aspiration pneumonia Qualifiers: Aspiration pneumonia type: unspecified Laterality: unspecified laterality Lung location: unspecified part of lung Qualified Code(s) : J69.0 - Pneumonitis due to inhalation of food and vomit Is this a current diagnosis for this admission?: YesPlan: She probably have aspiration pneumonia, she has long list of antibiotic allergy.
[2016-05-01 17:49] LABS: HEMATOCRIT 41.5 % (36.0-47.0); HEMOGLOBIN 13.1 g/dL (12.0-15.5); HGB HCT DIFFERENCE -2.2; MEAN CORPUSCULAR HEMOGLOBIN 27.9 pg (27.0-33.4); MEAN CORPUSCULAR HGB CONC 31.7 g/dL (32.0-36.0); MEAN CORPUSCULAR VOLUME 88 fl (80-97); RED BLOOD COUNT 4.71 10^6/uL (3.72-5.28); RED CELL DISTRIBUTION WIDTH 15.5 % (11.5-14.0)
[2016-05-01 18:19] LABS: BAND NEUTROPHILS % (MANUAL) 2 % (3-5); BASOPHILS % (MANUAL) 0 % (0-2); EOSINOPHILS % (MANUAL) 0 % (0-6); LYMPHOCYTES % (MANUAL) 7 % (13-45); TOTAL CELLS COUNTED 100
[2016-05-01 18:21] LABS: HYPOCHROMASIA SLIGHT; PLATELET CLUMPS PRESENT
[2016-05-01] MEDS ORDERED: DIAZEPAM INJ 10 MG/2 ML DISP.SYRIN ONE (20:03)
[2016-05-01] MEDS: DILTIAZEM HCL/D5W 125 MG/125 ML RTUINJ IV PRN ×2 (20:07→20:34)
[2016-05-01] MEDS ORDERED: DIAZEPAM INJ 10 MG/2 ML DISP.SYRIN IV ONE (20:15)
[2016-05-01 21:20] LABS: ALANINE AMINOTRANSFERASE 42 U/L (9-52); ALBUMIN 2.9 g/dL (3.5-5.0); ALKALINE PHOSPHATASE 94 U/L (38-126); ANION GAP 14 (5-19); ASPARTATE AMINO TRANSFERASE 118 U/L (14-36); BILIRUBIN,TOTAL 0.4 mg/dL (0.2-1.3); BLOOD UREA NITROGEN 10 mg/dL (7-20); CARBON DIOXIDE 27 mmol/L (22-30); CHLORIDE 103 mmol/L (98-107); GLUCOSE 101 mg/dL (75-110); POTASSIUM 3.1 mmol/L (3.6-5.0); SODIUM 143.6 mmol/L (137-145); TOTAL PROTEIN 6.7 g/dL (6.3-8.2)
[2016-05-01 21:28] LABS: CALCIUM 6.9 mg/dL (8.4-10.2)
[2016-05-01] MEDS: LATANOPROST 0.005% OPH SOLN 2.5 ML OU SCH (22:52)
[2016-05-02] MEDS ORDERED: MORPHINE SULFATE 10 MG/ML INJ ONE (00:53)
[2016-05-02] MEDS ORDERED: LORAZEPAM INJ 2 MG/1 ML VIAL ONE (00:54)
[2016-05-02 01:19] VITALS: BP 47/28
[2016-05-02] MEDS: LORAZEPAM INJ 2 MG/1 ML VIAL IV PRN ×9 (01:55→23:18)
[2016-05-02] MEDS: MORPHINE SULFATE 10 MG/ML INJ IV PRN ×8 (01:55→20:19)
[2016-05-02] MEDS: IPRATROPIUM/ALBUTEROL 0.5-2.5 MG/3 ML AMPUL NEB SCH ×2 (02:05→08:44)
[2016-05-02] MEDS: AZTREONAM 1 GM in DEXTROSE 5%-WATER 50 ML IV SCH (05:14)
[2016-05-02] MEDS: ENOXAPARIN SODIUM INJ 40 MG/0.4 ML DISP.SYRIN SUBCUT SCH (08:20)
[2016-05-02] MEDS: LEVETIRACETAM 500 MG/NACL-ISO 500 MG/100 ML RTUPB IV SCH ×2 (09:21→21:38)
[2016-05-02] MEDS ORDERED: FENTANYL 25 MCG/HR PATCH.TD72 TD SCH (10:00)
[2016-05-02] MEDS: NORMAL SALINE 1000 ML 1,000 ML IV PRN (20:19)
--- NOTE | 2016-05-02 20:48 | PDOC PROGRESS REPORT ---
Subjective Progress Note for:: 05/02/16 Subjective:: Patient care was transitioned to comfort care measures, family by the bedside Physical Exam Vital Signs: Temp Pulse Resp BP Pulse Ox 98.6 F 97 32 H 47/28 L 100 05/01/16 23:37 05/02/16 07:00 05/01/16 20:15 05/02/16 01:00 05/02/16 16:45 Intake & Output 05/01/16 05/02/16 05/03/16 06:59 06:59 06:59 Intake Total 500 100 Output Total 700 Balance 500 -600 Weight 64.1 kg Results Laboratory Results: 05/01/16 17:39 05/01/16 20:53 05/01/16 20:53 Sodium 143.6 Potassium 3.1 L Chloride 103 Carbon Dioxide 27 Anion Gap 14 BUN 10 Creatinine 0.70 Est GFR ( Amer) > 60 Est GFR (Non-Af Amer) > 60 Glucose 101 Calcium 6.9 L* Total Bilirubin 0.4 AST 118 H ALT 42 Alkaline Phosphatase 94 Total Protein 6.7 Albumin 2.9 L Impressions: Chest X-Ray 04/30/16 16:49 IMPRESSION: As above. Very limited exam. Head CT 05/01/16 00:00 IMPRESSION: No acute intracranial abnormality. Assessment & Plan - Diagnosis (1) Acute hypercapnic respiratory failure Is this a current diagnosis for this admission?: Yes (2) Unresponsive Is this a current diagnosis for this admission?: Yes (3) Aspiration pneumonia Qualifiers: Aspiration pneumonia type: unspecified Laterality: unspecified laterality Lung location: unspecified part of lung Qualified Code(s) : J69.0 - Pneumonitis due to inhalation of food and vomit Is this a current diagnosis for this admission?: Yes
[2016-05-03] MEDS: MORPHINE SULFATE 10 MG/ML INJ IV PRN ×7 (01:04→23:49)
[2016-05-03] MEDS: LORAZEPAM INJ 2 MG/1 ML VIAL IV PRN ×9 (02:29→23:49)
[2016-05-03] MEDS: NORMAL SALINE 1000 ML 1,000 ML IV PRN (09:10)
[2016-05-03] MEDS: LEVETIRACETAM 500 MG/NACL-ISO 500 MG/100 ML RTUPB IV SCH ×2 (09:11→21:35)
--- NOTE | 2016-05-03 18:20 | PDOC PROGRESS REPORT ---
Subjective Progress Note for:: 05/10/16 Subjective:: Patient is comfort care measures. She is having difficulty breathing, family by the bedside, we will increase the dose of morphine from 1 MG to 5 MG every hour as needed first dose is given now Physical Exam Vital Signs: Temp Pulse Resp BP Pulse Ox 98.6 F 97 32 H 47/28 L 100 05/01/16 23:37 05/02/16 07:00 05/01/16 20:15 05/02/16 01:00 05/02/16 16:45 Intake & Output 05/02/16 05/03/16 05/04/16 06:59 06:59 06:59 Intake Total 500 700 0 Output Total 975 0 Balance 500 -275 0 Weight 64.1 kg Results Laboratory Results: 05/01/16 17:39 05/01/16 20:53 Impressions: Chest X-Ray 04/30/16 16:49 IMPRESSION: As above. Very limited exam. Head CT 05/01/16 00:00 IMPRESSION: No acute intracranial abnormality. Assessment & Plan - Diagnosis (1) Acute hypercapnic respiratory failure Is this a current diagnosis for this admission?: Yes (2) Unresponsive Is this a current diagnosis for this admission?: Yes (3) Aspiration pneumonia Qualifiers: Aspiration pneumonia type: unspecified Laterality: unspecified laterality Lung location: unspecified part of lung Qualified Code(s) : J69.0 - Pneumonitis due to inhalation of food and vomit Is this a current diagnosis for this admission?: Yes
[2016-05-03] MEDS ORDERED: MORPHINE SULFATE 10 MG/ML INJ IV ONE (19:00)
[2016-05-03] MEDS ORDERED: LORAZEPAM INJ 2 MG/1 ML VIAL ONE (21:26)
[2016-05-04] MEDS: LORAZEPAM INJ 2 MG/1 ML VIAL IV PRN ×12 (01:41→20:24)
[2016-05-04] MEDS: MORPHINE SULFATE 10 MG/ML INJ IV PRN ×10 (01:41→20:24)
[2016-05-04] MEDS: LEVETIRACETAM 500 MG/NACL-ISO 500 MG/100 ML RTUPB IV SCH ×2 (09:55→22:37)
--- NOTE | 2016-05-04 16:56 | PDOC PROGRESS REPORT ---
Subjective Progress Note for:: 05/04/16 Subjective:: Patient comfort care measures Physical Exam Vital Signs: Temp Pulse Resp BP Pulse Ox 98.3 F 97 32 H 47/28 L 100 05/03/16 19:53 05/02/16 07:00 05/01/16 20:15 05/02/16 01:00 05/02/16 16:45 Intake & Output 05/03/16 05/04/16 05/05/16 06:59 06:59 06:59 Intake Total 700 80 Output Total 975 100 Balance -275 -20 Results Laboratory Results: 05/01/16 17:39 05/01/16 20:53 Impressions: Chest X-Ray 04/30/16 16:49 IMPRESSION: As above. Very limited exam. Head CT 05/01/16 00:00 IMPRESSION: No acute intracranial abnormality. Assessment & Plan - Diagnosis (1) Acute hypercapnic respiratory failure Is this a current diagnosis for this admission?: Yes (2) Unresponsive Is this a current diagnosis for this admission?: Yes (3) Aspiration pneumonia Qualifiers: Aspiration pneumonia type: unspecified Laterality: unspecified laterality Lung location: unspecified part of lung Qualified Code(s) : J69.0 - Pneumonitis due to inhalation of food and vomit Is this a current diagnosis for this admission?: Yes
--- NOTE | 2016-05-04 22:19 | Death Summary ---
Summary Date : 05/04/16 Time of :: 22:10 - Final Diagnosis (1) Acute hypercapnic respiratory failure Is this a current diagnosis for this admission?: Yes (2) Unresponsive Is this a current diagnosis for this admission?: Yes (3) Aspiration pneumonia Is this a current diagnosis for this admission?: Yes Hospital Course:: Patient was admitted because of acute hypercapnic respiratory failure due to aspiration pneumonia, she also was unresponsive she was a DO NOT RESUSCITATE status. She was just recently discharged from this hospital to skilled nursing where she resides. Family transition her care to comfort care measures within 24 hours of admission
== END 2016-05-04 23:13 | DRG 177 ==
LOC: ER 16:44 → EH 19:05 → 3W 05-01 18:50
PROVIDERS: ADMIT Internal Medicine; ATTEND Internal Medicine
PROC: 3E0F73Z Introduction of Anti-inflammatory into Respiratory Tract, Via Natural or Artificial Opening (ICD-10-PCS; principal; 2016-04-30)
DX: J69.0 Pneumonitis due to inhalation of food and vomit (principal); J96.02 Acute respiratory failure with hypercapnia; L03.90 Cellulitis, unspecified; I10 Essential (primary) hypertension; Z51.5 Encounter for palliative care; R41.82 Altered mental status, unspecified; I48.91 Unspecified atrial fibrillation; K21.9 Gastro-esophageal reflux disease without esophagitis; F32.9 Major depressive disorder, single episode, unspecified; K44.9 Diaphragmatic hernia without obstruction or gangrene; F41.9 Anxiety disorder, unspecified; M19.90 Unspecified osteoarthritis, unspecified site; Z86.14 Personal history of Methicillin resistant Staphylococcus aureus infection; Z88.0 Allergy status to penicillin; Z88.1 Allergy status to other antibiotic agents; Z88.6 Allergy status to analgesic agent; Z88.2 Allergy status to sulfonamides; Z90.49 Acquired absence of other specified parts of digestive tract; Z90.710 Acquired absence of both cervix and uterus; Z98.51 Tubal ligation status; R56.9 Unspecified convulsions
CPT/HCPCS: 36415; 70450; 71010; 80053; 80177; 81001; 82803; 83605; 85025; 85610; 87040; 87086; 93005; 93010; 94640; 96374; 99291; J1165; J1335; J1650; J1953; J2060; J2270; J3360; J3490; J7030; J7620